=== PATIENT | female | born 1945 | race Caucasian/White ===

== ENCOUNTER 2016-06-11 15:21 | Outpatient (CLI) | payer MEDICARE, OTHER | END 2016-06-11 15:22 | disposition home or self-care (01) | DX: I26.99 Other pulmonary embolism without acute cor pulmonale (principal); Z79.01 Long term (current) use of anticoagulants ==

== ENCOUNTER 2016-07-01 12:19 | Emergency (ER) | payer MEDICARE, OTHER ==
[2016-07-01] MEDS ORDERED: ONDANSETRON ODT 4 MG TABLET TL STA (13:32)
[2016-07-01] MEDS ORDERED: HYDROmorphone 1 MG/ML SYRINGE IM STA (13:32)
[2016-07-01] MEDS ORDERED: KETOROLAC 60 MG/2 ML VIAL IM STA (13:32)
[2016-07-01] MEDS ORDERED: ONDANSETRON ODT 4 MG TABLET ONE (13:51)
[2016-07-01] MEDS ORDERED: KETOROLAC 60 MG/2 ML VIAL ONE (13:51)
[2016-07-01] MEDS ORDERED: HYDROmorphone 1 MG/ML SYRINGE ONE (13:51)
== END 2016-07-01 15:02 | disposition home or self-care (01) ==
DX: M54.31 Sciatica, right side (principal); G89.29 Other chronic pain; Z86.718 Personal history of other venous thrombosis and embolism; Z79.01 Long term (current) use of anticoagulants; I10 Essential (primary) hypertension
CPT/HCPCS: 85610; 96372; 99283; 99284; J1170; Q0162

== ENCOUNTER 2016-07-05 | Outpatient (CLI) | payer MEDICARE, OTHER | END 2016-07-05 15:53 | disposition critical access hospital (66) | CPT/HCPCS: A0425; A0429 ==

== ENCOUNTER 2016-07-05 16:09 | Inpatient (IN) | payer MEDICARE, OTHER ==
[2016-07-05] MEDS ORDERED: IPRATROPIUM/ALBUTEROL 3 ML NEB INH STA (16:15)
[2016-07-05] MEDS ORDERED: DEXAMETHASONE 10 MG/ML VIAL IVP STA (16:15)
[2016-07-05] MEDS ORDERED: HYDROmorphone 1 MG/ML SYRINGE IVP STA (16:15)
[2016-07-05] MEDS ORDERED: IPRATROPIUM/ALBUTEROL 3 ML NEB INH ONE (16:17)
[2016-07-05] MEDS ORDERED: HYDROmorphone 1 MG/ML SYRINGE ONE (16:35)
[2016-07-05] MEDS ORDERED: DEXAMETHASONE 10 MG/ML VIAL ONE (16:36)
[2016-07-05] MEDS ORDERED: IOPAMIDOL-300 100 ML VIAL IVP ONE (17:42)
[2016-07-05] MEDS ORDERED: cefTRIAXone 1 GM in SODIUM CHLORIDE 0.9% MINIBAG 100 ML IV STA (19:30)
[2016-07-05] MEDS ORDERED: ALBUTEROL NEB 2.5 MG/3 ML INH STA (19:31)
[2016-07-05] MEDS ORDERED: cefTRIAXone 1 GM VIAL ONE (19:43)
[2016-07-05] MEDS ORDERED: ALBUTEROL NEB 2.5 MG/3 ML INH ONE (19:54)
[2016-07-05] MEDS ORDERED: ONDANSETRON ODT 4 MG TABLET TL PRN (20:45)
[2016-07-05] MEDS ORDERED: ACETAMINOPHEN 325 MG TABLET PO PRN (20:45)
[2016-07-05] MEDS ORDERED: ONDANSETRON 4 MG/2 ML VIAL IVP PRN (20:45)
[2016-07-05] MEDS ORDERED: ALBUTEROL NEB 2.5 MG/3 ML INH PRN (20:48)
[2016-07-05] MEDS: methylPREDNISolone SUCCINATE 40 MG/ML VIAL IVP SCH (22:11)
[2016-07-05] MEDS: GABAPENTIN 300 MG CAPSULE PO SCH (22:11)
[2016-07-05] MEDS: azaTHIOprine 50 MG TABLET PO SCH (22:11)
[2016-07-05] MEDS: SODIUM CHLORIDE FLUSH 0.9% 10 ML SYRINGE IVP SCH (22:11)
[2016-07-05] MEDS: HYDROmorphone 1 MG/ML SYRINGE IVP PRN (23:41)
[2016-07-06] MEDS: GABAPENTIN 300 MG CAPSULE PO SCH ×3 (07:07→21:15)
[2016-07-06] MEDS: PANTOPRAZOLE 40 MG TABLET PO SCH (07:07)
[2016-07-06] MEDS: SODIUM CHLORIDE FLUSH 0.9% 10 ML SYRINGE IVP SCH ×3 (07:07→21:08)
[2016-07-06] MEDS: methylPREDNISolone SUCCINATE 40 MG/ML VIAL IVP SCH ×3 (07:07→21:14)
[2016-07-06] MEDS ORDERED: cefTRIAXone 500 MG VIAL IVP SCH (09:00)
[2016-07-06] MEDS: HYDROmorphone 1 MG/ML SYRINGE IVP PRN ×5 (09:41→18:32)
[2016-07-06] MEDS: SODIUM CHLORIDE FLUSH 0.9% 10 ML SYRINGE IVP PRN ×4 (09:42→21:16)
[2016-07-06] MEDS: POLYETHYLENE GLYCOL 3350 17 GM PACKET PO SCH (09:43)
[2016-07-06] MEDS: oxyCODONE 5 MG TABLET PO PRN ×3 (09:45→18:31)
[2016-07-06] MEDS: azaTHIOprine 50 MG TABLET PO SCH ×2 (09:45→21:15)
[2016-07-06] MEDS: ENALAPRIL 5 MG TABLET PO SCH (09:45)
[2016-07-06] MEDS: AMITRIPTYLINE 10 MG TABLET PO SCH (09:45)
[2016-07-06] MEDS: CETIRIZINE 10 MG TABLET PO SCH (09:45)
[2016-07-06] MEDS: ACETYLCYSTEINE 600 MG CAPSULE PO SCH (09:52)
[2016-07-06] MEDS ORDERED: NYSTATIN POWDER 15 GM TOP ONE (10:36)
[2016-07-06] MEDS: diazePAM 5 MG TABLET PO PRN (11:50)
[2016-07-06] MEDS: WARFARIN 5 MG TABLET PO SCH (14:01)
[2016-07-06] MEDS: cefTRIAXone 1 GM in SODIUM CHLORIDE 0.9% MINIBAG 100 ML IV SCH (20:31)
[2016-07-06] MEDS: DOCUSATE SODIUM 250 MG CAPSULE PO SCH (23:53)
[2016-07-07] MEDS: PANTOPRAZOLE 40 MG TABLET PO SCH (06:18)
[2016-07-07] MEDS: GABAPENTIN 300 MG CAPSULE PO SCH ×3 (06:18→21:40)
[2016-07-07] MEDS: methylPREDNISolone SUCCINATE 40 MG/ML VIAL IVP SCH ×3 (06:18→21:40)
[2016-07-07] MEDS: SODIUM CHLORIDE FLUSH 0.9% 10 ML SYRINGE IVP SCH ×3 (06:18→21:43)
[2016-07-07] MEDS: oxyCODONE 5 MG TABLET PO PRN ×5 (06:18→21:40)
[2016-07-07] MEDS: diazePAM 5 MG TABLET PO PRN (08:04)
[2016-07-07] MEDS: SODIUM CHLORIDE FLUSH 0.9% 10 ML SYRINGE IVP PRN ×6 (08:05→21:43)
[2016-07-07] MEDS: HYDROmorphone 1 MG/ML SYRINGE IVP PRN ×5 (08:05→16:45)
[2016-07-07] MEDS: POLYETHYLENE GLYCOL 3350 17 GM PACKET PO SCH (10:35)
[2016-07-07] MEDS: DOCUSATE SODIUM 250 MG CAPSULE PO SCH (10:37)
[2016-07-07] MEDS: ACETYLCYSTEINE 600 MG CAPSULE PO SCH (10:38)
[2016-07-07] MEDS: AMITRIPTYLINE 10 MG TABLET PO SCH (10:38)
[2016-07-07] MEDS: ENALAPRIL 5 MG TABLET PO SCH (10:38)
[2016-07-07] MEDS: CETIRIZINE 10 MG TABLET PO SCH (10:38)
[2016-07-07] MEDS: azaTHIOprine 50 MG TABLET PO SCH ×2 (10:38→20:14)
[2016-07-07] MEDS: FLUCONAZOLE 100 MG TABLET PO SCH (10:39)
[2016-07-07] MEDS: diazePAM 5 MG TABLET PO SCH ×2 (14:23→21:40)
[2016-07-07] MEDS: WARFARIN 5 MG TABLET PO SCH (14:23)
[2016-07-07] MEDS: cefTRIAXone 1 GM in SODIUM CHLORIDE 0.9% MINIBAG 100 ML IV SCH (20:13)
[2016-07-08] MEDS: oxyCODONE 5 MG TABLET PO PRN ×2 (03:05→10:37)
[2016-07-08] MEDS: diazePAM 5 MG TABLET PO SCH (05:31)
[2016-07-08] MEDS: GABAPENTIN 300 MG CAPSULE PO SCH (05:31)
[2016-07-08] MEDS: methylPREDNISolone SUCCINATE 40 MG/ML VIAL IVP SCH (05:31)
[2016-07-08] MEDS: SODIUM CHLORIDE FLUSH 0.9% 10 ML SYRINGE IVP SCH (05:31)
[2016-07-08] MEDS: PANTOPRAZOLE 40 MG TABLET PO SCH (06:22)
[2016-07-08] MEDS: HYDROmorphone 1 MG/ML SYRINGE IVP PRN ×3 (07:46→13:01)
[2016-07-08] MEDS: POLYETHYLENE GLYCOL 3350 17 GM PACKET PO SCH (08:54)
[2016-07-08] MEDS: ENALAPRIL 5 MG TABLET PO SCH (08:56)
[2016-07-08] MEDS: azaTHIOprine 50 MG TABLET PO SCH (08:56)
[2016-07-08] MEDS: DOCUSATE SODIUM 250 MG CAPSULE PO SCH (08:57)
[2016-07-08] MEDS: AMITRIPTYLINE 10 MG TABLET PO SCH (08:57)
[2016-07-08] MEDS: FLUCONAZOLE 100 MG TABLET PO SCH (08:57)
[2016-07-08] MEDS: CETIRIZINE 10 MG TABLET PO SCH (08:57)
[2016-07-08] MEDS: ACETYLCYSTEINE 600 MG CAPSULE PO SCH (12:43)
== END 2016-07-08 13:39 | DRG 189 ==
DX: J96.21 Acute and chronic respiratory failure with hypoxia (principal); R09.02 Hypoxemia; J84.9 Interstitial pulmonary disease, unspecified; E87.1 Hypo-osmolality and hyponatremia; Z68.42 Body mass index [BMI] 45.0-49.9, adult; G47.30 Sleep apnea, unspecified; G43.909 Migraine, unspecified, not intractable, without status migrainosus; R35.1 Nocturia; B37.49 Other urogenital candidiasis; H54.7 Unspecified visual loss; J32.9 Chronic sinusitis, unspecified; B37.89 Other sites of candidiasis; G89.29 Other chronic pain; M48.06 Spinal stenosis, lumbar region; I28.9 Disease of pulmonary vessels, unspecified; E66.01 Morbid (severe) obesity due to excess calories; Z86.718 Personal history of other venous thrombosis and embolism; I10 Essential (primary) hypertension; Z99.81 Dependence on supplemental oxygen; R32 Unspecified urinary incontinence; R35.0 Frequency of micturition; I49.9 Cardiac arrhythmia, unspecified; M25.512 Pain in left shoulder; M25.511 Pain in right shoulder; F32.9 Major depressive disorder, single episode, unspecified; Z96.659 Presence of unspecified artificial knee joint; Z79.01 Long term (current) use of anticoagulants; Z79.891 Long term (current) use of opiate analgesic; Z79.52 Long term (current) use of systemic steroids; Z79.899 Other long term (current) drug therapy; Z86.711 Personal history of pulmonary embolism; Z74.9 Problem related to care provider dependency, unspecified

== ENCOUNTER 2016-07-08 | Outpatient (CLI) | payer MEDICARE, OTHER | END 2016-07-08 13:42 | CPT/HCPCS: A0425; A0428 ==

== ENCOUNTER 2016-08-22 13:48 | Outpatient (CLI) | payer MEDICARE, OTHER | END 2016-08-22 13:49 | disposition home or self-care (01) | DX: I26.99 Other pulmonary embolism without acute cor pulmonale (principal); Z79.01 Long term (current) use of anticoagulants ==

== ENCOUNTER 2016-08-28 14:55 | Outpatient (CLI) | payer MEDICARE, OTHER | END 2016-08-28 14:56 | DX: I26.99 Other pulmonary embolism without acute cor pulmonale (principal); Z79.01 Long term (current) use of anticoagulants ==

== ENCOUNTER 2016-10-30 14:45 | Outpatient (CLI) | payer MEDICARE, OTHER | END 2016-10-30 14:46 | LOC: LAB.N 14:45 | PROVIDERS: ATTEND Internal Medicine | DX: I26.99 Other pulmonary embolism without acute cor pulmonale (principal) | CPT/HCPCS: 85610 ==

== ENCOUNTER 2016-12-03 13:18 | Outpatient (CLI) | payer MEDICARE, OTHER | END 2016-12-03 23:59 | disposition home or self-care (01) | DX: I26.99 Other pulmonary embolism without acute cor pulmonale (principal) ==

== ENCOUNTER 2016-12-17 08:00 | Outpatient (CLI) | payer MEDICARE, OTHER ==
[2016-12-17 19:41] LABS: BILIRUBIN,URINE NEGATIVE (NEGATIVE); PH,URINE 6.5 PH (5.0-7.5)
[2016-12-17 19:50] LABS: UA CHARGE (STRIP ONLY) YES; UR CULTURE IF IND NOT INDICATED
== END 2016-12-17 08:01 | disposition home or self-care (01) ==
LOC: LAB.N 08:00
PROVIDERS: ATTEND Internal Medicine
DX: R30.0 Dysuria (principal); I26.99 Other pulmonary embolism without acute cor pulmonale; Z79.01 Long term (current) use of anticoagulants
CPT/HCPCS: 81001; 81003; 85610; 87086

== ENCOUNTER 2017-01-16 13:55 | Outpatient (CLI) | payer MEDICARE, OTHER | END 2017-01-16 13:56 | disposition home or self-care (01) | LOC: LAB.N 13:55 | PROVIDERS: ATTEND Internal Medicine | DX: I26.99 Other pulmonary embolism without acute cor pulmonale (principal) | CPT/HCPCS: 85610 ==

== ENCOUNTER 2017-02-18 12:53 | Outpatient (CLI) | payer MEDICARE, OTHER | END 2017-02-18 12:54 | disposition home or self-care (01) | LOC: LAB 12:53 | PROVIDERS: ATTEND Internal Medicine | DX: I26.99 Other pulmonary embolism without acute cor pulmonale (principal); Z79.01 Long term (current) use of anticoagulants | CPT/HCPCS: 85610 ==

== ENCOUNTER 2017-03-13 14:57 | Outpatient (CLI) | payer MEDICARE, OTHER | END 2017-03-13 14:58 | disposition home or self-care (01) | LOC: LAB 14:57 | PROVIDERS: ATTEND Internal Medicine | DX: I26.99 Other pulmonary embolism without acute cor pulmonale (principal); Z79.01 Long term (current) use of anticoagulants | CPT/HCPCS: 85610 ==

== ENCOUNTER 2017-07-22 08:00 | Outpatient (CLI) | payer MEDICARE, OTHER | END 2017-07-22 08:01 | LOC: LAB.N 08:00 | PROVIDERS: ATTEND Internal Medicine | DX: I26.99 Other pulmonary embolism without acute cor pulmonale (principal); Z79.01 Long term (current) use of anticoagulants | CPT/HCPCS: 85610 ==

== ENCOUNTER 2017-09-17 13:50 | Outpatient (CLI) | payer MEDICARE, OTHER ==
[2017-09-17 15:29] LABS: BASOPHILS # (AUTO) 0.1 10^3/uL (0.0-0.1); BASOPHILS % (AUTO) 0.5 %; HGB - HEMOGLOBIN 13.1 g/dL (12.0-16.0); LYMPHOCYTES # (AUTO) 0.2 10^3/uL (1.5-3.5); LYMPHOCYTES % (AUTO) 2.2 %; MEAN CORPUSCULAR HEMOGLOBIN 32.3 pg (27.0-31.0); MEAN CORPUSCULAR VOLUME 97.9 fL (81.0-99.0); MEAN PLATELET VOLUME 8.2 fL (7.9-10.8); MONOCYTES # (AUTO) 0.5 10^3/uL (0.0-1.0); MONOCYTES % (AUTO) 4.3 %; NEUTROPHILS # (AUTO) 9.9 10^3/uL (1.5-6.6); PLT - PLATELET COUNT 197 10^3/uL (130-450); RED BLOOD COUNT 4.07 10^6/uL (4.20-5.40); RED CELL DISTRIBUTION WIDTH 15.9 % (12.0-15.0); WHITE BLOOD COUNT 10.7 x10^3/uL (4.8-10.8)
[2017-09-17 15:43] LABS: ALBUMIN/GLOBULIN RATIO 1.3 (1.0-2.2); BILIRUBIN,TOTAL 0.6 mg/dL (0.2-1.0); CREATININE 0.9 mg/dL (0.4-1.0); TOTAL PROTEIN 7.2 g/dL (6.7-8.2)
== END 2017-09-17 13:51 | disposition home or self-care (01) ==
LOC: LAB 13:50
PROVIDERS: ATTEND Internal Medicine
DX: I26.99 Other pulmonary embolism without acute cor pulmonale (principal); Z79.01 Long term (current) use of anticoagulants; E04.9 Nontoxic goiter, unspecified; F32.9 Major depressive disorder, single episode, unspecified; I10 Essential (primary) hypertension; I27.20 Pulmonary hypertension, unspecified
CPT/HCPCS: 36415; 80053; 84443; 85025; 85610

== ENCOUNTER 2017-11-04 13:53 | Outpatient (CLI) | payer MEDICARE, OTHER | END 2017-11-04 13:54 | LOC: LAB.N 13:53 | PROVIDERS: ATTEND Internal Medicine | DX: I26.99 Other pulmonary embolism without acute cor pulmonale (principal); Z79.01 Long term (current) use of anticoagulants | CPT/HCPCS: 85610 ==

== ENCOUNTER 2017-11-19 15:20 | Outpatient (CLI) | payer MEDICARE, OTHER | END 2017-11-19 15:21 | disposition home or self-care (01) | LOC: LAB 15:20 | PROVIDERS: ATTEND Internal Medicine | DX: I26.99 Other pulmonary embolism without acute cor pulmonale (principal); Z79.01 Long term (current) use of anticoagulants | CPT/HCPCS: 85610 ==

== ENCOUNTER 2018-01-06 11:15 | Outpatient (CLI) | payer MEDICARE, OTHER ==
--- NOTE | 2018-01-06 16:09 | CONSULTATION NOTE ---
Palliative Care Consultation - Referral Referring Provider: Dr. Danilo Quiles Time of Visit: [id number] Referral setting: Home (This attacks and considerable effort for the patient to leave the home secondary to her dyspnea and chair bound status) Referral Reason: Interstitial Lung Disease/Generalized Weakness - Information Sources Records reviewed: Previous records reviewed History/Review of Systems obtained from: Patient, Friend (Friend Dana Castillo present for the visit; provides often "rescue" visits when patient in distress) Exam limitations: Clinical condition (patient very breathless through all of exam) - History of Present Illness Brief History of Present Illness: This is a 72-year-old woman who presents with severe dyspnea, she has known nonspecific idiopathic pulmonary fibrosis. She was diagnosed about 16 years ago , did fairly well for several years, was functional, able to work, and breathlessness intermittently was only symptom. Reports she did have progression with ongoing limitation for several years, but ended up with an exacerbation as far as hospitalization due to sciatic nerve pain, acute on chronic respiratory failure with hypoxia, and transitioned to [facility] 06/2016. On discharge, because of increasing difficulties of managing at home with her obesity, and activity intolerance was at [facility]. She ended up there only for a short time, before she wanted to return home. She has continued to struggle over the last few months, but most acutely over the last 2-3 months. This is punctuated by severe dyspnea, hypoxia with any kind of minimal movement despite increasing oxygen. She had a severe scare with a recent power outage, her lift chair got stuck, and the concentrator turned off and couldn't get to her supplemental oxygen and had to call for help. With her decline, she had called Dr. Wilson and had to cancel appointment, and with her needing more help the office nurse had told her she "needed hospice" thus the call to Dr. Quiles. Patient has little understanding of hospice, and after discussion is not aligned currently with her current goals. She is currently unable to get out of her home, her son got her a powerchair so she is able to get around the house. Even with removing shirt for exam gets hypoxic down to to low 80s, when talking it stays around 84-85%, takes around 3- 5 minutes of patients being quiet and still for oxygen to normalize up to around 94-95%. She reports at times it floats down into the "40s" with significant episodes, but in 60-70"s at 5 liters with activity, and she paces herself or turns up her oxygen to recover. She does wear an oximeter to help her manage. Medical/Surgical History - Past Medical History Cardiovascular: reports: Hypertension, Pulmonary embolism Respiratory: reports: Shortness of breath, Other (Nonspecific pulmonary fibrosis ) Neuro: Migraines (Hx), Tremors Endocrine/Autoimmune: reports: None GI: reports: GERD : reports: Incontinence, Frequency Psych: reports: Depression, Anxiety Musculoskeletal: reports: Osteoarthritis, Chronic back pain Derm: reports: Other (candidiasis in skin folds) MRSA Hx?: No - Past Surgical History General: reports: Cholecystectomy, Colonoscopy, EGD Ortho: reports: Knee replacement, Carpal Tunnel surgery, Spine surgery, 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 Her son just got , and is moving to [facility] for 3 years. She and her daughter are somewhat estranged. She has minimal support and significant financial stressors as far as being able to hire help. She does live in a one-story home, does have some housekeeping and yard assist. The home is owned by her son. Family History - Family History Family History: Mother: (father in 60's of ID; mother in 60' s of stomach cancer; brother of complications of agent orange), Cancer ( thyroid cancer), Father: , ID, Sister: Alive and Well, Cancer, Brother: Medications/Allergies - Medications Home Medications: Ambulatory Orders Medication Instructions Recorded Confirmed Acetylcysteine 600 mg PO DAILY 11/08/13 01/06/18 [B-Okhhya-h-Cysteine] Prednisone 10 mg PO DAILY 11/08/13 01/06/18 azaTHIOprine [Azathioprine] 50 mg PO QDBREAKFAST 11/08/13 01/06/18 Amitriptyline [Elavil] 20 mg PO QPM 06/15/14 01/06/18 Warfarin [Coumadin] 5 - 10 mg PO DAILY 06/15/14 01/06/18 Citalopram Hydrobromide [Celexa] 10 mg PO DAILY 07/06/16 01/06/18 buPROPion [Wellbutrin Sr] 150 mg PO BID 07/06/16 01/06/18 Biotin 5,000 mg PO DAILY 01/06/18 01/06/18 Flaxseed Oil 1 cap PO DAILY 01/06/18 01/06/18 Nystatin [Nystop] 1 applic TOP BID PRN MDD rash 01/06/18 01/06/18 Tumeric 1 tab PO DAILY 01/06/18 azaTHIOprine [Azathioprine] 100 mg PO QPM 01/06/18 01/06/18 - Allergies Allergies/Adverse Reactions: Allergies Allergy/AdvReac Type Severity Reaction Status Date / Time amoxicillin Allergy Intermediate Rash Verified 07/05/16 16:25 clavulanic acid Allergy Unknown Verified 07/06/16 15:13 Penicillins Allergy Unknown Verified 07/06/16 15:13 Review of Systems - Constitutional Constitutional: reports: Fatigue, Weight stable (309). denies: Fever, Chills - Eyes Eyes: reports: Vision loss, Corrective lenses - Ears, Nose & Throat Ears, Nose & Throat: reports: Postnasal drainage (frequent non responsive to sprays), Dry mouth - Cardiovascular Cardiovascular: reports: Exertional dyspnea, Decr. exercise tolerance, Orthopnea (sleeps in "sleep number" bed with HOB up). 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 denies: Constipation, Nausea, Reflux/heartburn - Genitourinary Genitourinary: reports: Frequency, Incontinence - Musculoskeletal Musculoskeletal: reports: Muscle pain, Back pain, Muscle aches, Stiffness, Limited range of motion, Muscle weakness, Joint pain, Transfer issues (uses walker to transfer to power chair; ambulates few steps only), Other (zfoot pattern with callouses;) - Integumentary Integumentary: reports: Rash (candidiasis in "fat folds") - Neurological Neurological: reports: General weakness, Memory problems (intermittent- connected to hypoxia/anxiety) - Psychiatric Psychiatric: reports: Depression, Anxiety - Hematologic/Lymphatic Hematologic/Lymphatic: reports: Blood clots, Bleeding tendencies (no protime check; getting machine in home) - All Other Systems All Other Systems: reports: Reviewed and negative Physical Exam - Vital Signs Temperature: 97.0 C Pulse Rate: 87 Respiratory Rate: 24 O2 Saturation: 90 (3 liters at rest see HPI) Blood Pressure: 142/62 (currently off enalapril) - Physical Exam General Appearance: positive: Moderate distress (very breathless with any activity or conversation), Anxious Eyes Bilateral: positive: Normal inspection ENT: positive: No signs of dehydration Neck: positive: No JVD, Trachea midline Cardiovascular: positive: Regular rate & rhythm Respiratory: positive: Diminished throughout, Other (dry crackles left lower lobe; few exp. wheezes) Abdomen: positive: Non-tender, Soft, Nml bowel sounds, Obese Skin: positive: Pallor, Dryness Extremities: positive: No pedal edema Neurologic/Psychiatric: positive: Oriented x3, Mood/affect nml, Weakness Palliative Care - POLST Patient has POLST: No Pain: Location (chronic low back pain; intermittent "sciatica" bilateral knee pain;) Tiredness/Fatigue: Moderate (4-6) Drowsiness/Sedation: Mild (1-3) Nausea: None Depression: Mild (1-3) Anxiety: Moderate (4-6) Dyspnea: Severe (7-10) Anorexia: Mild (1-3) Sleep: Variable sleep pattern Constipation: No, Intermittent constipation Feelings of wellbeing/Perceived Quality of Life: Fair, Worsening Performance Status: Patient's report she spends most of her time in a recliner, she can transfer to the power wheelchair and toilet. But she is often incontinent as it is a significant effort for her. She does do some meal prep but paces herself. She cannot longer get down the steps, they are looking into getting her a ramp, she is a second scooter that she uses for paratransit. It is unclear now she will be able to do this without someone accompanying her. She reports she can shower , she does have a transfer bath bench, it is a with great effort. She can do minimal household tasks, and is interviewing for assistance as this has become more difficult. She cannot stand to do the dishes anymore. I would put her at a PPS 50% - Palliative Care Discussion: Patient does not have a durable power of health energy attorney, though she does report she would pick her son. Did point out though he is moving to [place] for 3 years, she does not feel her daughter would be appropriate, her friend suggested including possibly her granddaughter who is 22 years old. Patient has really not done much discussion or thinking about her end-of-life wishes. She has somewhat unrealistic expectations when speaking about the decision around [employer], I did introduce the concept given the seriousness of her illness, her severe lung disease, that her wish to "give it a good try" might be unrealistic as far as expected outcomes. Much time spent on counseling around the [address] form, goals of care, and realistic expectations regarding care for end-of-life. Patient at this point in time does not have adequate support to have oversight for end-of-life event, but definitely would benefit from hospice in assisting with current support and helping develop a transition plan. Patient's goals currently though, do not align with hospice, the patient most likely would meet the hospice criteria. She is not ready to consider focusing on comfort only, no further hospitalizations, and creating an end of life plan. Counseling provided for first steps, her son is coming this weekend, provided information and forms for advance directives, and anticipatory guidance as far as what to expect as she further decline encouraged to discuss the information we have reviewed today, may need to set a family conference in near future. Patient's friend who participated is a retired RN and offered to help Ching with this conversation given her concerns and more limited availability, patient depends a lot on Pat. Impression and Recommendations - Palliative Care Impression: This is a pleasant 72-year-old woman who is morbidly obese, with long-standing history of nonspecific pulmonary fibrosis and history of pulmonary emboli in the past. She has had continued functional decline, is much more vulnerable given her poor activity tolerance and high hypoxia with activity, she is breathless with any activity, but denies distress with this. She has minimal social support, financial limitations as far as being able to hire assistance or return to assisted living, and somewhat unrealistic expectations as far as how she is going to manage her pending decline. Palliative care to provide support and anticipatory guidance, assist with advanced care planning and transition to hospice when goals align. Recommendations/Counseling Done: 1. Dyspnea. Patient at this point is not a candidate for short acting morphine , though most likely would benefit but has no safety net for monitoring response. Counseling provided regarding pacing activity, energy conservation, provided information and obtaining Lifeline. 2. Fatigue, this is multifactorial in origin. Most likely directly related to her dyspnea and hypoxia, morbidity and limited endurance, and deconditioning. Patient would benefit from increased assistance in the home, counseling provided regarding community resources, she has been in contact with Senior services. Will refer medical palliative care director social service to further assist in long-term planning. 3. Anxiety. Patient does have insight into her declining status, but unrealistic expectations as far as her needs into the future. Very anxious she is "going to choke to ", and given the fragility of her situation is at risk for falls, sequela of hypoxic episodes, and hospitalization. Did recommend she request for her Lifeline when that signals if she has a fall and does not require pushing the button. 4. Anti-coag therapy. Patient is obtaining a ongoing pro time machine, secondary to her homebound status. Unfortunately I did not know she needed a blood draw so did not draw a day. Patient expecting it within the next few days , arrange for visit next Friday can draw at that time if not completed. 5. Advanced care planning. Significant amount of time was spent on counseling regarding durable power of health energy attorney, [address] form, goals of care and realistic expectations in the context of serious disease, introduced strategies for talking to her family, counseling regarding the role of hospice. Patient would make the criteria at this point in time, but does not meet align with goals of care for focus on comfort. She has not really thought out her wishes around end of life, and will be significantly challenged given her lack of social support. We will refer to the palliative care team members including medical palliative care director social service, and buyer planner support. She has found her adonay and adonay community which she no longer is able to participate in, very comforting. Thank you Dr. Quiles for asking the palliative care consult service to be involved in the care of your patient, will continue to work with her around advanced care planning and anticipatory guidance. Patient at this point in time most likely would meet hospice criteria but is not ready to make that transition. Will follow up with her next week. Time Spent: 75 minutes with good 50% of this done in counseling regarding her disease process, advanced care planning, and anticipatory guidance as well as safety measures
== END 2018-01-06 11:16 | disposition home or self-care (01) ==
LOC: PC 11:15
PROVIDERS: ATTEND Nurse Practitioner Adult Health
DX: Z51.5 Encounter for palliative care (principal); R06.00 Dyspnea, unspecified; R53.83 Other fatigue; F41.9 Anxiety disorder, unspecified; J84.112 Idiopathic pulmonary fibrosis; E66.01 Morbid (severe) obesity due to excess calories; R09.02 Hypoxemia; Z99.81 Dependence on supplemental oxygen; Z79.01 Long term (current) use of anticoagulants; Z79.52 Long term (current) use of systemic steroids; M79.1 Myalgia; M62.81 Muscle weakness (generalized); G89.29 Other chronic pain; M54.5 Low back pain
CPT/HCPCS: 99345

== ENCOUNTER 2018-01-14 14:30 | Outpatient (CLI) | payer MEDICARE, OTHER ==
--- NOTE | 2018-01-14 17:46 | CONSULTATION NOTE ---
Palliative Care Follow Up - Referral Referring Provider: Dr. Danilo Quiles Time of Visit: [id number] Referral setting: Home (It is a taxing considerable effort for the patient leave the home secondary to dyspnea and weakness) Referral Reason: Pulmonary Fibrosis/Goals of care - Information Sources Records reviewed: Previous records reviewed History/Review of Systems obtained from: Patient Exam limitations: No limitations - History of Present Illness Update Brief HPI Update: This is a 72-year-old woman who presents with nonspecific idiopathic pulmonary fibrosis, she is diagnosed about 16 years ago, has done fairly well for several years, has been dissipating pulmonary rehab has been functional, able to work, and her symptoms of breathlessness have been intermittent. She did have a recent hospitalization 06/2016 due to sciatic nerve pain, with resulting acute on chronic respiratory failure with hypoxia and has continued to decline since this point in time. She is continuing to struggle specifically over the last few months, most acutely over the last 2-3 months, this is with increased oxygen need with severe hyper hypoxia, dyspnea, and with any minimal movement is needing increased oxygen support. At baseline she runs in the 90s at 3 L this is without any movement, with transfers are toileting she needs supplemental oxygen to bring her up to 5 L. She accomplishes this by taking the concentrator at 3 L and putting her tank on with a double nasal cannula to equal 5-6 L. She has been struggling now with her decreased functional status, does recognize the seriousness of her illness, and palliative care has been trying to provide counseling and clarification of goals. Social History - Living Situation Living arrangement: At home Living Situation: Alone Support System: Patient is quite compromised, does have some friends and family that do some errands for her, but she is without any consistent support. She is attempting to hire privately assistance 3 times a week, this is not been finished. Her son is supposed to be making arrangements for [employer]. Medications/Allergies - Medications Home Medications: Ambulatory Orders Medication Instructions Recorded Confirmed Acetylcysteine 600 mg PO DAILY 11/08/13 01/06/18 [V-Ooqwhj-o-Cysteine] Prednisone 10 mg PO DAILY 11/08/13 01/06/18 azaTHIOprine [Azathioprine] 50 mg PO QDBREAKFAST 11/08/13 01/06/18 Amitriptyline [Elavil] 20 mg PO QPM 06/15/14 01/06/18 Warfarin [Coumadin] 5 - 10 mg PO DAILY 06/15/14 01/06/18 Citalopram Hydrobromide [Celexa] 10 mg PO DAILY 07/06/16 01/06/18 buPROPion [Wellbutrin Sr] 150 mg PO BID 07/06/16 01/06/18 Biotin 5,000 mg PO DAILY 01/06/18 01/06/18 Flaxseed Oil 1 cap PO DAILY 01/06/18 01/06/18 Nystatin [Nystop] 1 applic TOP BID PRN MDD rash 01/06/18 01/06/18 Tumeric 1 tab PO DAILY 01/06/18 azaTHIOprine [Azathioprine] 100 mg PO QPM 01/06/18 01/06/18 - Allergies Allergies/Adverse Reactions: Allergies Allergy/AdvReac Type Severity Reaction Status Date / Time amoxicillin Allergy Intermediate Rash Verified 07/05/16 16:25 clavulanic acid Allergy Unknown Verified 07/06/16 15:13 Penicillins Allergy Unknown Verified 07/06/16 15:13 Review of Systems - Constitutional Constitutional: reports: Fatigue. denies: Fever, Chills - Eyes Eyes: reports: Vision loss, Corrective lenses - Ears, Nose & Throat Ears, Nose & Throat: reports: Sore throat (with smoke), Hoarseness, Dry mouth - Cardiovascular Cardiovascular: reports: Exertional dyspnea, Decr. exercise tolerance, Orthopnea - Respiratory Respiratory: reports: Orthopnea, SOB at rest, SOB with exertion - Gastrointestinal Gastrointestinal: reports: Diarrhea (intermittent), Good appetite - Genitourinary Genitourinary: reports: Incontinence (intermittent/stress) - Musculoskeletal Musculoskeletal: reports: Back pain, Muscle aches, Stiffness, Limited range of motion, Muscle weakness, Joint pain (right shoulder), Transfer issues ( transfers to scooter to chair/commode; min ambulation) - Integumentary Integumentary: reports: Rash (intermittent candidasis) - Neurological Neurological: reports: General weakness, Dizziness (with hypoxia), Memory problems (STM mild) - Psychiatric Psychiatric: reports: Depression, Anxiety - All Other Systems All Other Systems: reports: Reviewed and negative Physical Exam - Vital Signs Temperature: 97.4 C Pulse Rate: 72 Respiratory Rate: 28 O2 Saturation: 92 (5 liters/ usually at rest has it at 3 liters with concentator ) Blood Pressure: 118/72 - Physical Exam General Appearance: positive: Alert, Mild distress (respiratory effort), Anxious ENT: positive: No signs of dehydration Neck: positive: No JVD, Trachea midline Cardiovascular: positive: Regular rate & rhythm Respiratory: positive: Diminished throughout Abdomen: positive: Soft, Nml bowel sounds, Obese Skin: positive: Pallor Extremities: positive: No pedal edema Neurologic/Psychiatric: positive: Oriented x3, Other (very anxious and talkative despite breathlessness) Palliative Care - POLST Patient has POLST: Yes POLST Status: DNR, Selective Treatment (completed today) Pain: Pain unchanged, Location (midback area) Tiredness/Fatigue: Moderate (4-6) Drowsiness/Sedation: Mild (1-3) Nausea: None Depression: Mild (1-3) Anxiety: Moderate (4-6) Dyspnea: Severe (7-10) Anorexia: None Sleep: Variable sleep pattern Constipation: No Feelings of wellbeing/Perceived Quality of Life: Fair, Acceptable, Worsening Performance Status: Patient though limited with her activity tolerance and ability to ambulate more than a few feet, does transfer to and from her scooter. With transfer though she does become more hypoxic and increases her oxygen to 5-6 L. She reports she is able to bathe independently, though with her limited right shoulder she has difficulty washing her hair. She does have a bathroom set up. She does have a pad that does raise up secondary to orthopnea. Is having significant difficulty with household tasks including cooking and washing dishes. Does have someone who comes in does her larger housekeeping, as well as assistance with her laundry - Palliative Care Discussion: Patient and I had met last week initiated the conversation about the SHERRY [address], and the need for DPO A. Discussion regarding palliative care versus hospice care, this was followed up by the medical palliative care social secretary along with the son. Patient does recognize her decline particularly over the last few weeks to few months, she reports she is not "afraid to ", but is quite terrified as far as what a respiratory is going to look like. Patient this point in time would be quite open to moving to assisted living, given her increased care needs, but at this juncture she is unable to financially be able to afford this unfortunately. Her son who would be the financial support for this, is getting ready to leave for [facility], and does not have time to rent out the house and get her transferred. Her perception is her kids do not recognize her decline, and eventual . She is actually much more open today about talking about this. We did go ahead and complete the SHERRY ST, after lengthy conversation regarding all the options and her goals of care, after teased it all out she does not want to have CPR recognizing with the seriousness of her illness it would most likely not be a good outcome, nor would she want to be more dependent. She did pick selected treatments, as she is not feeling like she aligns with comfort measures only, she would accept hospitalization, weighing the benefits of [place]'s treatment options offered, but does not want to be ventilated. Lengthy discussion regarding hospice and the hospice benefit, patient will need a primary caregiver and or placement for her end of life given the most likelihood of high symptom burden, and dependency given her illness. We did discuss at length her DPOAE, she does want her son Mk Zamora [phone] As the primary though he will be moving to [facility] in a couple weeks. She is going to ask her bycsoz-cl-yyg Cheryl Denney about being the second, and consider her daughter the third. She is concerned her daughter would find this too overwhelming. Results - Lab Results Lab results reviewed: Yes Lab and Imaging Results: Patient did receive a pro time machine, she is able to check it now she reports her pro time was 2.2 this week Impression and Recommendations - Palliative Care Impression: This is an anxious 72-year-old woman who is morbidly obese, with long-standing history of nonspecific pulmonary fibrosis, history of pulmonary emboli in the past, with functional decline, poor activity tolerance, severe dyspnea and hypoxia. Patient is beginning to tease out her goals of care, SHERRY ST was completed today, medical palliative care social secretary working with patient and family to establish long-term plan and goals as well. Palliative care team to continue to provide support until patient is ready to transition to hospice, or has an acute event that presses this sooner. Recommendations/Counseling Done: 1. Dyspnea. Patient at this point is not a candidate for short acting morphine , given the fact she lives alone, there is no safety net for monitoring response though most likely would benefit. We did did discuss in the context of her concerns regarding breathlessness, in the future decline and about comfort status, the use of morphine and hospice focused comfort care. Counseling provided regarding pacing activity, energy conservation, encouraged to follow-up on [employer]. 2. Fatigue this is multifactorial in origin. Most likely directly related to her dyspnea and hypoxia, her morbid obesity, limited endurance, and deconditioning. She is starting to make phone calls to be able to hire help, the agreement between her, the family, and medical palliative care social secretary was to look at least starting with 3 times a week. 3. Anxiety. Patient does have some insight into her declining status, is somewhat unrealistic expectation as far as her needs in the future again. We did spend quite a bit of time answering her questions regarding as best we know her expected decline, symptoms she may experience, the role of hospice, and the need for primary caregivers. 4. Advanced care planning. Revisited again with a significant amount of time spent on counseling regarding durable power of health assistant prosecuting attorney, SHERRY ST form, and goals of care. Patient is much more clear she is starting to define what this might look like for her, we did complete the SHERRY ST with a DNAR/selective treatment. Palliative care to continue to provide support, did agree on monthly visits, until ready to transition to hospice. Time Spent: 75 minutes with gated 50% of this done in counseling regarding goals of care, anticipatory guidance regarding disease process, and coordination of care with other team members.
== END 2018-01-14 14:31 | disposition home or self-care (01) ==
LOC: PC 14:30
PROVIDERS: ATTEND Nurse Practitioner Adult Health
DX: Z51.5 Encounter for palliative care (principal); R06.00 Dyspnea, unspecified; R53.83 Other fatigue; F41.9 Anxiety disorder, unspecified; J84.10 Pulmonary fibrosis, unspecified; Z99.81 Dependence on supplemental oxygen; M62.81 Muscle weakness (generalized); E66.01 Morbid (severe) obesity due to excess calories; R09.02 Hypoxemia; Z66 Do not resuscitate
CPT/HCPCS: 99350

== ENCOUNTER 2018-02-24 15:00 | Outpatient (CLI) | payer MEDICARE, OTHER ==
--- NOTE | 2018-02-25 08:34 | CONSULTATION NOTE ---
Palliative Care Follow Up - Referral Referring Provider: Dr. Danilo Marinelli Time of Visit: [id number] Referral setting: Home (It is a taxing and considerable effort for the patient to leave the home secondary to dyspnea/hypoxia) Referral Reason: Pulmonary Fibrosis - Information Sources Records reviewed: Previous records reviewed History/Review of Systems obtained from: Patient Exam limitations: No limitations - History of Present Illness Update Brief HPI Update: This is a 72-year-old woman who presents with nonspecific idiopathic pulmonary fibrosis, diagnosed 16 years ago, and has had a fairly progressive but slow decline. She though has over the last few months, most acutely over the last 2 months, had increased oxygen need, with severe hypoxia, dyspnea, and with minimal activity increased oxygen need. She continues to run at baseline in the 90s at 3 L, with any transfers or activity she needs supplemental oxygen to bring her up to 5 L. Her oxygen does decrease even with conversation, into the mid 80s, she continues to try and remain independent, using power chair, walker for transfers, and pacing of activities. She does at some level have an understanding of the seriousness of her illness, over estimates her ability, and continues to be fiercely independent. She has not left the home for over 6-8 weeks, but she talks about driving, discussed at length she is not to drive. Her dog will he of 13 years, about 2 weeks ago, secondary to seizures. She has had a fairly significant grief reaction to this, and now has minimal companionship. She has neighbors that check on her, [employer], but has done very little to move forward on getting increased support in the home. Social History - Living Situation Living arrangement: At home Living Situation: Alone Support System: Patient with very little social support, son has moved to [facility], daughter minimally involved. She does have a [id number] who she chats with on a regular basis, but is unable to really provide any practical support. She has employed or made contact with a caregiver, but this will only be for Friday and Friday afternoons. She does have support for household cleaning. She reports she does have a granddaughter that can help with transportation. Medications/Allergies - Medications Home Medications: Ambulatory Orders Medication Instructions Recorded Confirmed Acetylcysteine 600 mg PO DAILY 11/08/13 02/25/18 [O-Dxuzal-e-Cysteine] Prednisone 10 mg PO DAILY 11/08/13 02/25/18 azaTHIOprine [Azathioprine] 50 mg PO QDBREAKFAST 11/08/13 02/25/18 Amitriptyline [Elavil] 20 mg PO QPM 06/15/14 02/25/18 Warfarin [Coumadin] 5 - 10 mg PO DAILY 06/15/14 02/25/18 Citalopram Hydrobromide [Celexa] 10 mg PO DAILY 07/06/16 02/25/18 buPROPion [Wellbutrin Sr] 150 mg PO BID 07/06/16 02/25/18 Biotin 5,000 mg PO DAILY 01/06/18 02/25/18 Flaxseed Oil 1 cap PO DAILY 01/06/18 02/25/18 Nystatin [Nystop] 1 applic TOP BID PRN MDD rash 01/06/18 02/25/18 Tumeric 1 tab PO DAILY 01/06/18 02/25/18 azaTHIOprine [Azathioprine] 100 mg PO QPM 01/06/18 02/25/18 - Allergies Allergies/Adverse Reactions: Allergies Allergy/AdvReac Type Severity Reaction Status Date / Time amoxicillin Allergy Intermediate Rash Verified 07/05/16 16:25 clavulanic acid Allergy Unknown Verified 07/06/16 15:13 Penicillins Allergy Unknown Verified 07/06/16 15:13 Review of Systems - Constitutional Constitutional: reports: Fatigue, Weight stable. denies: Fever, Chills - Eyes Eyes: reports: Vision loss - Ears, Nose & Throat Ears, Nose & Throat: reports: Dry mouth - Cardiovascular Cardiovascular: reports: Exertional dyspnea, Decr. exercise tolerance, Orthopnea. denies: Palpitations, Chest pain - Respiratory Respiratory: reports: SOB at rest, SOB with exertion. denies: Cough - Gastrointestinal Gastrointestinal: reports: Good appetite. denies: Constipation, Nausea - Genitourinary Genitourinary: reports: Incontinence - Musculoskeletal Musculoskeletal: reports: Stiffness, Limited range of motion, Muscle weakness, Assistive devices (uses walker to assist with transfers), Transfer issues (uses powerchair for mobility in home) - Integumentary Integumentary: reports: Rash (candidiasis in folds), Dryness - Neurological Neurological: reports: General weakness, Headache (right sided tension/hx of migraines), Memory problems (STM) - Psychiatric Psychiatric: reports: Anxiety - Hematologic/Lymphatic Hematologic/Lymphatic: reports: Blood clots (hx of PE) - All Other Systems All Other Systems: reports: Reviewed and negative Physical Exam - Vital Signs Temperature: 97.9 C Pulse Rate: 88 Respiratory Rate: 22 O2 Saturation: 92 (5 liters at rest; 82 with talking for prolonged period) Blood Pressure: 178/86 (end of visit after talking with hypoxia) - Physical Exam General Appearance: positive: Mild distress, Anxious Eyes Bilateral: positive: Normal inspection ENT: positive: No signs of dehydration Neck: positive: No JVD, Trachea midline Cardiovascular: positive: Regular rate & rhythm Respiratory: positive: Other (inspiratory dry crackles bilaterally, diminished BS LLL; increased respiratory effort with conversation;) Abdomen: positive: Soft, Nml bowel sounds, Obese Skin: positive: Pallor, Dryness, Rash Extremities: positive: No pedal edema, Other (left foot bandaged had "rammed" toe into fridge with power chair) Neurologic/Psychiatric: positive: Oriented x3, Mood/affect nml Palliative Care - POLST Patient has POLST: Yes POLST Status: DNR, Selective Treatment Pain: Location (new pain back of right hand; radiates into forearm;) Tiredness/Fatigue: Moderate (4-6) Drowsiness/Sedation: Mild (1-3) Nausea: None Depression: Mild (1-3) Anxiety: Moderate (4-6) Dyspnea: Severe (7-10) Anorexia: Mild (1-3) Sleep: Variable sleep pattern (patient tends to stay up into the early hours of the morning playing computer games; poor sleep hygiene) Constipation: No Feelings of wellbeing/Perceived Quality of Life: Fair Performance Status: Patient is able to manage her ADLs, would be better to have some assistance. She does pace herself very slowly. She does spend most of the time in a recliner, and is mobile in her home with a power chair only. - Palliative Care Discussion: Patient does have a SHERRY ST in place, it is posted on the refrigerator. It is a do not attempt resuscitation/allow natural as well as selective treatment. She is hopeful as far as goals to remain in her home for as long as possible, she had been hoping for some improvement, but does recognize that she has continued to decline both functionally and with her respiratory status over the last few weeks to months. She is very isolated, now with the loss of her dog with minimal companionship, despite her breathlessness and hypoxia with conversation, patient talks fairly incessantly through the visit. Has made contact and met with medical palliative care elementary school social worker, he will continue to meet with her on a monthly basis. She has had the maintenance supervisor electrical reach out, she is still interested in follow-up. She reports her adonay is significant her coping. Impression and Recommendations - Palliative Care Impression: This is an anxious 72-year-old woman who is morbidly obese, with long-standing history of nonspecific pulmonary fibrosis, history of pulmonary emboli, presents with functional decline, poor activity tolerance, severe dyspnea and hypoxia. She most recently lost her dog, is presenting with a fairly significant grief reaction. Patient continues as far as her goals to remain in the home and independent for as long as possible. Palliative care team to provide support until patient is ready to transition to hospice, or an acute event that may press this sooner. Recommendations/Counseling Done: 1. Dyspnea. Patient at this point remains not a candidate for short acting morphine, given the fact she lives alone and no safety net for monitoring. She has been pacing herself with better control of her hypoxia, have encouraged her to allow a new caregiver to assist with bathing and other activities for energy conservation, patient becomes quite anxious with her oximeter, reviewed that given her poor circulation this is not going to always be accurate. 2. Fatigue, this is multifactorial in origin. Did review her sleep hygiene, she does stay up all night often playing computer games, shopping online, and does not have good sleep habits. Counseling provided sleep hygiene, setting alarm to go to bed, minimizing her exposure to computer screen prior to sleep, and timing of her melatonin. 3. Anxiety. Patient does have some insight into her declining status remains fairly unrealistic about her abilities. Counseled she is not to return to driving, secondary to her hypoxia and poor activity tolerance. Problem solving regarding how she might still be able to get out for doctor's appointments etc. She has obtained ramp, now needs to follow through on getting it set up. 4. Candidiasis in groin folds and under her breast. Patient does have difficulty with nystatin given her morbid obesity and her difficulty tolerating laying flat. Counseling regarding use of interwick product. 5. Anti-coag therapy. Patient is managing her independent coag therapy machine, with little difficulty. She is working with Dr. marinelli's office to titrate coumadin. 6. Advanced care planning. SHERRY ST form has been completed, has not completed her durable power of health civil rights representative, need to identify backup given son is in [place]. Palliative care to continue to provide support, will continue to visit on a monthly basis until ready to transition to hospice. Time Spent: 60 minutes with greater than 50% of this done in counseling symptom management, sleep hygiene, goals of care, addressing grief and loss, and anticipatory guidance
== END 2018-02-24 15:01 | disposition home or self-care (01) ==
LOC: PC 15:00
PROVIDERS: ATTEND Nurse Practitioner Adult Health
DX: Z51.5 Encounter for palliative care (principal); I27.20 Pulmonary hypertension, unspecified; J84.112 Idiopathic pulmonary fibrosis; R53.83 Other fatigue; B37.2 Candidiasis of skin and nail; F41.9 Anxiety disorder, unspecified; R32 Unspecified urinary incontinence; H54.7 Unspecified visual loss; Z99.81 Dependence on supplemental oxygen; Z66 Do not resuscitate; Z79.52 Long term (current) use of systemic steroids; Z79.01 Long term (current) use of anticoagulants
CPT/HCPCS: 99350

== ENCOUNTER 2018-03-26 08:00 | Outpatient (CLI) | payer MEDICARE, OTHER ==
[2018-03-27 11:16] LABS: BILIRUBIN,URINE NEGATIVE (NEGATIVE); GLUCOSE, URINE (UA) NEGATIVE (NEGATIVE); KETONES,URINE (UA) NEGATIVE (NEGATIVE); LEUKOCYTE ESTERASE, URINE SMALL (NEGATIVE); NITRITE,URINE POSITIVE (NEGATIVE); OCCULT BLOOD,URINE MODERATE (NEGATIVE); PROTEIN,URINE TRACE mg/dL (NEGATIVE); UROBILINOGEN,URINE 0.2 (NORMAL) E.U./dL (NORMAL)
[2018-03-27 11:25] LABS: BACTERIA,URINE Moderate /HPF (None Seen); CLARITY,URINE CLOUDY (CLEAR); SQUAMOUS EPITHELIAL CELL,UR FEW Squamous (<= Few); WBC CLUMPS,URINE PRESENT
[2018-03-27 11:26] LABS: CRYSTALS,URINE 0-2 Calcium Oxalate /LPF
== END 2018-03-26 08:01 | disposition home or self-care (01) ==
LOC: LAB.R 08:00
PROVIDERS: ATTEND Internal Medicine
DX: R30.0 Dysuria (principal)
CPT/HCPCS: 81001; 87086; 87181

== ENCOUNTER 2018-06-08 14:10 | Outpatient (CLI) | payer MEDICARE, OTHER ==
--- NOTE | 2018-06-08 17:53 | CONSULTATION NOTE ---
Palliative Care Follow Up - Referral Referring Provider: Dr. Marinelli Time of Visit: [id number] Referral setting: Home Referral Reason: Pulmonary Fibrosis - Information Sources Records reviewed: Previous records reviewed History/Review of Systems obtained from: Patient Exam limitations: No limitations - History of Present Illness Update Brief HPI Update: This is a 73-year-old woman who has advanced stages of pulmonary fibrosis, which is thought to be idiopathic. She has had history of pulmonary embolus, for which she is on ongoing warfarin. She did see her mud analysis supervisor in early April, was found to have a significant reduction in her pulmonary function tests with readings of FVC at 0.8 925% of the predicted. She had made the appointment to define life expectancy, he reports it is indeed "poor", but it was given a couple of years. This was a relief to her, as her understanding was she was fairly eminent. He had recommended she would benefit from a formal evaluation for BiPAP, and is quite focused on her ongoing difficulty with nasal congestion. She has tried her ipratropium bromide spray with very little relief, and was wondering about allergy shots. We discussed this most likely is not going to give her the benefit that she is perceiving, and recommended tried some antihistamine given this is been beneficial in the past. Patient is made very little progress as far as making changes, she does have some increased help with someone coming once a week she is quite isolated and lonely, she does agree to [employer] and volunteer support this time. She continues to practice poor sleep hygiene practices, though we have had long discussions regarding this. She remains quite anxious, does tend to use high doses of her oxygen secondary to her perception she desats easily with any kind of movement or transfers. She does get breathless with even conversation, so I expect mobility and transfers do cause her more distress. Patient's goals are to remain at home and independent as long as possible, palliative care to continue provide support until transition to hospice is appropriate. Social History - Living Situation Living arrangement: At home Living Situation: Alone Support System: She does have a daughter and a son. Her daughter is only peripherally involved in her care. Her son now lives in [place]. She does have her [id number] Cheryl who checks in every few weeks. She manages all her own appointments and medications. She does have granddaughters who will provide transportation, is her granddaughter did take her down to her appointment at [facility] Medications/Allergies - Medications Home Medications: Ambulatory Orders Medication Instructions Recorded Confirmed Acetylcysteine 600 mg PO DAILY 11/08/13 06/08/18 [N-[id number]-[id number]-[id number]] Prednisone 10 mg PO DAILY 11/08/13 06/08/18 azaTHIOprine [Azathioprine] 50 mg PO QDBREAKFAST 11/08/13 06/08/18 Amitriptyline [Elavil] 20 mg PO QPM 06/15/14 06/08/18 Warfarin [Coumadin] 5 - 10 mg PO DAILY 06/15/14 06/08/18 Citalopram Hydrobromide [Celexa] 10 mg PO DAILY 07/06/16 06/08/18 buPROPion [Wellbutrin Sr] 150 mg PO BID 07/06/16 06/08/18 Biotin 5,000 mg PO DAILY 01/06/18 06/08/18 Flaxseed Oil 1 cap PO DAILY 01/06/18 06/08/18 Nystatin [Nystop] 1 applic TOP BID PRN MDD rash 01/06/18 06/08/18 Tumeric 1 tab PO DAILY 01/06/18 06/08/18 azaTHIOprine [Azathioprine] 100 mg PO QPM 01/06/18 06/08/18 Ipratropium [place] 1 inh JESSI BID 06/08/18 06/08/18 Melatonin 5 mg PO DAILY PM PRN 06/08/18 06/08/18 - Allergies Allergies/Adverse Reactions: Allergies Allergy/AdvReac Type Severity Reaction Status Date / Time amoxicillin Allergy Intermediate Rash Verified 07/05/16 16:25 clavulanic acid Allergy Unknown Verified 07/06/16 15:13 Penicillins Allergy Unknown Verified 07/06/16 15:13 Review of Systems - Constitutional Constitutional: reports: Fatigue, Weight loss (patient reports at Dr. Haque's office of 50 pound weight loss; 280 from 322). denies: Fever, Chills - Eyes Eyes: reports: Vision loss, Corrective lenses - Ears, Nose & Throat Ears, Nose & Throat: reports: Nasal congestion (describes as "poofs up" and can't breath), Postnasal drainage, Hoarseness (intermittent), Dry mouth - Cardiovascular Cardiovascular: reports: Lightheadedness, Exertional dyspnea, Decr. exercise tolerance, Orthopnea - Respiratory Respiratory: reports: Orthopnea, SOB at rest, SOB with exertion - Gastrointestinal Gastrointestinal: reports: Constipation, Reflux/heartburn, Good appetite. denies: Nausea - Genitourinary Genitourinary: reports: Frequency, Incontinence (mild) - Musculoskeletal Musculoskeletal: reports: Back pain, Stiffness, Muscle weakness, Transfer issues (pivot transfers to wheelchair/bed/recliner) - Integumentary Integumentary: reports: Rash (improved), Dryness - Neurological Neurological: reports: General weakness, Headache (wakes with severe headache consistently; responds to APAP), Memory problems (mild STM) - Psychiatric Psychiatric: reports: Depression, Anxiety. denies: Suicidal - Hematologic/Lymphatic Hematologic/Lymphatic: denies: Recurrent infections - All Other Systems All Other Systems: reports: Reviewed and negative Physical Exam - Vital Signs Temperature: 97.3 C Pulse Rate: 83 Respiratory Rate: 20 O2 Saturation: 92 (5 liters at rest) Blood Pressure: 138/86 - Physical Exam General Appearance: positive: Mild distress, Anxious Eyes Bilateral: positive: Normal inspection ENT: positive: No signs of dehydration Neck: positive: No JVD, Trachea midline Cardiovascular: positive: Regular rate & rhythm Respiratory: positive: Diminished throughout (fine dry exp crackles) Abdomen: positive: Soft, Nml bowel sounds, Obese Skin: positive: Pallor, Dryness, Bruising. negative: Rash Extremities: positive: No pedal edema Neurologic/Psychiatric: positive: Oriented x3, Mood/affect nml, Weakness, Flat affect, Other (pressured speech/gets breathless easily) Palliative Care - POLST Patient has POLST: Yes POLST Status: DNR, Selective Treatment Pain: Pain unchanged, Location (right shoulder and back; uses APAP; headache pain worsening) Tiredness/Fatigue: Moderate (4-6), Comment (She does go to bed at 3 am; awakens at 12-1300) Drowsiness/Sedation: Mild (1-3) Nausea: None Depression: Moderate (4-6) Anxiety: Severe (7-10) Dyspnea: Severe (7-10) Anorexia: Mild (1-3) Sleep: Variable sleep pattern Constipation: Yes, Intermittent constipation Feelings of wellbeing/Perceived Quality of Life: Fair, Acceptable, No change Performance Status: Patient is limited by her dyspnea and need to work with her oxygen tanks and oxygen concentrator. She does double her oxygen i.e. concentrator and tanks to increase her oxygen to keep her numbers above 90 with transfers and activity. She is still bathing independently about once a week, does have someone doing housekeeping, but does spend most of her time in the recliner. I would put her at a PPS at 50% - Palliative Care Discussion: Patient is feeling somewhat relieved that she has "2 years". We did discuss this is in the context of no further complications, recurrent pneumonia, no falls. She does recognize she has not improved at all, does have some "bad days", these are punctuated by increased headache pain and less tolerance of activity. She does admit to feeling lonely, her dog will he had earlier this year, and has very few visitors. She spends her time watching TV, on the computer, and at night playing computer games. Patient's hope is to be able to stay at home through end of life, but is very anxious about "gasping" and dying of horrible . Counseling provided regarding the role of hospice, symptom management, medications were used to keep people comfortable. Palliative care to continue to provide support, will enlist help of wholesale and retail merchant and volunteer. Impression and Recommendations - Palliative Care Impression: This is a 73-year-old woman who has advanced stage pulmonary fibrosis, who is mostly homebound, and presents with anxiety, depression, and significant breathlessness. She continues to create many barriers as far as easing symptoms, increasing support, and/or problem solving. Palliative care to continue provide support and transition to hospice when appropriate Recommendations/Counseling Done: 1. Fatigue. This is multifactorial in origin. Patient gets significantly dyspneic with any kind of activity, so does present with deconditioning. Patient currently is still able to independently transfer, is independently bathing though is excepting more help as far as household tasks. Encouraged to be as active as possible within her limitations, as the goal is to keep her independent. 2. Insomnia. Patient has been counseled on sleep hygiene, this is revisited again in the context of patient's perceived difficulty with sleeping. She does sleep though 8-10 hours a day. We did discuss moving back her set bedtime and arising time and an hour every week. Also again reiterated screen time, and light exposure. 3. Dyspnea. Patient has her own ideas regarding managing her oxygen. She does double her oxygen as far as using concentrator and tanks. Unclear if this is really necessary, she is going to have Dr. marinelli evaluate for [employer] oxygen. She would like a concentrator that goes up to 8-10 L. As currently this is what she is creating by doubling up. Unfortunately Medicare has changed regulations, nurse practitioner so longer can certify for oxygen equipment. Recommended she call ahead of time so they know her expectations. 4. Depression. Patient is on antidepressants, most likely is a combination of isolation and feelings of grief and loss. Did agree as patient is quite angry at [employer], for wholesale and retail merchant support as well as will trial volunteer for weekly visits for socialization and small tasks. 5. Advanced pulmonary fibrosis. Patient remains quite compromised, at this point in time is had no further "episodes" of concern as far as safety. Patient is hopeful that she will "improve", though when reviewed visit and information from her mud analysis supervisor is in agreement that she will continue to decline. At this point in time she has minimal social support and caregiving support, has presented many barriers as far as addressing this more aggressively. We will go ahead and have medical palliative care social sciences professor follow along as changes occur. 6. Advanced care planning. Addressed patient's questions yet again regarding palliative versus hospice care, reviewed patient needs to have a prognosis of 6 months or less as well as goals for comfort only and not rehospitalization. She does not feel like she is quite there yet for end of life would like to consider a at home. Given her lack of social support though this will be quite challenging. We did discuss earlier transition to hospice is more likely to be able to meet her goals, will continue to monitor for decline Time Spent: 60 minutes with getting 50% of this done in counseling regarding symptoms and symptom management, goals of care, resources, coordination of care with referral to [facility] and volunteer
== END 2018-06-08 14:11 | disposition home or self-care (01) ==
LOC: PC 14:10
PROVIDERS: ATTEND Nurse Practitioner Adult Health
DX: Z51.5 Encounter for palliative care (principal); I27.20 Pulmonary hypertension, unspecified; J84.10 Pulmonary fibrosis, unspecified; R53.83 Other fatigue; G47.00 Insomnia, unspecified; R06.00 Dyspnea, unspecified; F32.9 Major depressive disorder, single episode, unspecified; H54.7 Unspecified visual loss; Z66 Do not resuscitate; Z79.01 Long term (current) use of anticoagulants; Z99.81 Dependence on supplemental oxygen; Z79.52 Long term (current) use of systemic steroids
CPT/HCPCS: 99350

== ENCOUNTER 2018-07-14 17:43 | Outpatient (CLI) | payer MEDICARE, OTHER ==
--- NOTE | 2018-07-14 18:07 | CONSULTATION NOTE ---
Palliative Care Follow Up - Referral Referring Provider: Dr. Danilo Marinelli Time of Visit: [id number] Referral setting: Home (It is a taxing considerable effort for the patient leave the home secondary to severe dyspnea and fatigue) Referral Reason: Pulmonary Fibrosis/Anxiety - Information Sources Records reviewed: Previous records reviewed History/Review of Systems obtained from: Patient Exam limitations: No limitations - History of Present Illness Update Brief HPI Update: This is a 73-year-old woman who has advanced stages of pulmonary fibrosis, which is thought to be idiopathic. She also has a history of pulmonary embolus for which she is on warfarin titrated by her primary care provider. She continues to have severe respiratory compromise, with desaturation with any kind of movement, she does get tachycardic, keeps her oxygen usually around 4-5 L, and up to 10 L when moving. At this point in time she does have a new concentrator, she does report this is better but it does only go up to 9 L but her O2 sats are remaining in an acceptable range for her. She continues to be somewhat unrealistic regarding her current situation, she wanted to revisit the whole thing about driving today. I was very firm in the context patient is not safe to drive, she does have severe hypoxia, and if she were in an accident it would be hard pressed to not find her at fault. She has many excuses and reasons why paratransit is not working, and she has in her mind multiple [place]. Of note she has not set any of these up, this is been a common theme. We did discuss in the context of 1 of the things is causing her most dramatic distress and her quality of life is her headaches. Dr. marinelli did send her a referral, this is in [place] but she again puts at multiple barriers. In the context of her headache she reports is fairly persistent, more frontal. She does not perceive it is connected all to her hypoxia, her blood pressure, or her activity level. She does at times use Tylenol with some results, but is finding this more of problem. Patient expecting to get a new power chair, she does have one that does not work very well, and again provides multiple barriers for getting out as it does not go down the ramp that she had bought, which is too steep. Patient perceives that she is in "a holding pattern". She does feel she recovers quicker with the high flow concentrator, but continues to have difficulty meeting her care needs at home. She has just a minimal amount of help, but again puts it barriers to following through our hiring more assistance. She is only bathing every other week, because of the difficulty she has with this, she is going to talk to her son about "a walk-in shower" this weekend. I find the patient somewhat pale, she remains very dyspneic with any kind of conversation, she is quite tangential in her thinking and is difficulty to focus as far as her goals. She does, with multiple barriers regarding why she cannot follow through on things, and also I perceive her with high anxiety. She is quite isolated, she continues to grieve the loss of her little dog who is her constant team supervisor, and has minimal support from her family. Patient has expiratory dry crackles in her right lower lobe, left diminished. Denies any cough, she does have dry skin, her nails are significantly long and they are in need of trimming. Her house is quite cluttered, she continues to stay up late hours at night, and is continued to online shop with increased accumulating packages at home. Social History - Living Situation Living arrangement: At home Living Situation: Alone Support System: Patient continues to oversee her own care, her son from [facility] who will be coming home for couple days, she was able gathering with her son and daughter. Her daughter does not provide any kind of support. She has had some transportation from her granddaughter. Patient does have [employer], she does have a new lift chair which has made things much more easy, and reports the new concentrator has helped her as well. She has a neighbor who checks on her regularly. Medications/Allergies - Medications Home Medications: Ambulatory Orders Medication Instructions Recorded Confirmed Acetylcysteine 600 mg PO DAILY 11/08/13 07/14/18 [[id number]-Cysteine] Prednisone 10 mg PO DAILY 11/08/13 07/14/18 azaTHIOprine [Azathioprine] 50 mg PO QDBREAKFAST 11/08/13 07/14/18 Amitriptyline [Elavil] 20 mg PO QPM 06/15/14 07/14/18 Warfarin [Coumadin] 5 - 10 mg PO DAILY 06/15/14 07/14/18 Citalopram Hydrobromide [Celexa] 10 mg PO DAILY 07/06/16 07/14/18 buPROPion [Wellbutrin Sr] 150 mg PO BID 07/06/16 07/14/18 Biotin 5,000 mg PO DAILY 01/06/18 07/14/18 Flaxseed Oil 1 cap PO DAILY 01/06/18 07/14/18 Nystatin [Nystop] 1 applic TOP BID PRN MDD rash 01/06/18 07/14/18 Tumeric 1 tab PO DAILY 01/06/18 07/14/18 azaTHIOprine [Azathioprine] 100 mg PO QPM 01/06/18 07/14/18 Ipratropium [place] 1 inh JESSI BID 06/08/18 07/14/18 Melatonin 5 mg PO DAILY PM PRN 06/08/18 07/14/18 Sildenafil Citrate [Sildenafil] 20 mg PO BID 07/14/18 07/14/18 - Allergies Allergies/Adverse Reactions: Allergies Allergy/AdvReac Type Severity Reaction Status Date / Time amoxicillin Allergy Intermediate Rash Verified 07/05/16 16:25 clavulanic acid Allergy Unknown Verified 07/06/16 15:13 Penicillins Allergy Unknown Verified 07/06/16 15:13 Review of Systems - Constitutional Constitutional: reports: Fatigue, Weight stable. denies: Fever, Chills - Eyes Eyes: reports: Vision loss, Corrective lenses - Ears, Nose & Throat Ears, Nose & Throat: reports: Nasal congestion, Dry mouth - Cardiovascular Cardiovascular: reports: Exertional dyspnea, Decr. exercise tolerance, Orthopnea - Respiratory Respiratory: reports: Orthopnea, SOB at rest, SOB with exertion - Gastrointestinal Gastrointestinal: reports: Good appetite. denies: Constipation, Nausea, Reflux/heartburn - Genitourinary Genitourinary: reports: Urgency - Musculoskeletal Musculoskeletal: reports: Muscle aches, Stiffness, Limited range of motion, Muscle weakness, Transfer issues (uses walker to transfer; uses power chair in home-one found and in poor condition; hoping to get new scooter/chair) - Integumentary Integumentary: reports: Dryness, Nail changes (thick overgrown toe nails) - Neurological Neurological: reports: General weakness, Headache (reports have increased in frequency and intensity; uses APAP without much relief; has referral to [place] to specialist-creates many barriers to going; patient does not feel it is related to her oxygen levels/use; worse when first awakens;), Memory problems (She does have short-term memory loss, has difficulty holding onto thoughts. Had negotiated at length for time of visit, and on arrival patient had forgotten I was coming.) - Psychiatric Psychiatric: reports: Depression, Anxiety - All Other Systems All Other Systems: reports: Reviewed and negative Physical Exam - Vital Signs Temperature: 96.8 C Pulse Rate: 86 Respiratory Rate: 16 O2 Saturation: 86 (5 liters with conversation; 93% if rests and recovers) Blood Pressure: 138/68 - Physical Exam General Appearance: positive: Mild distress, Anxious Eyes Bilateral: positive: Normal inspection, Conjunctivae nml (resolved) ENT: positive: Dry mucous membranes (baseline) Neck: positive: No JVD, Trachea midline Cardiovascular: positive: Regular rate & rhythm Respiratory: positive: Diminished throughout, Other (dry expiratory crackles RLL) Abdomen: positive: Soft, Nml bowel sounds, Obese Skin: positive: Pallor, Dryness, Pruritis, Rash, Other (patient unable tolerate bathing except every other week; unwilling to explore other support/set ups; could use MEDIA ANALYTICS MANAGER) Extremities: positive: No pedal edema, Other (hammer toes; thickened toenails badly needing attention) Neurologic/Psychiatric: positive: Oriented x3, Mood/affect nml, Weakness, Flat affect, Other (patient talks almost nonstop; tangential in her thinking and reasoning;) Palliative Care - POLST Patient has POLST: Yes POLST Status: DNR, Selective Treatment Pain: Pain worsening, Location (Patient has baseline right shoulder pain, from previous rotator injury. She also complains of continuous lower back pain and spasms, though this is improved since she has been in her new recliner. She reports she needs to go "see the chiropractor", but again does not have a plan or has followed through on this. She does have new pain and persistent headache, she is using some acetaminophen. She is unable to attribute this to anything is particular, though she has multiple risk factors and is most likely is multifactorial) Tiredness/Fatigue: Moderate (4-6) Drowsiness/Sedation: Moderate (4-6), Comment (Tends to stay up late into the early hours, playing on the computer. She reports she is "addicted to computer games". But she sleeps until late.) Nausea: None Depression: Moderate (4-6) Anxiety: Severe (7-10) (Patient denies anxiety, though does present is quite anxious, pressured speech, difficulty following through on a thought nor making any kind of solid plans. She is quite isolated, and often does not speak to anyone for days.) Anorexia: None Sleep: Variable sleep pattern Constipation: Yes, Intermittent constipation Feelings of wellbeing/Perceived Quality of Life: Fair, Acceptable, Worsening Performance Status: The patient denies functional decline, patient does describe doing less, she is only bathing every other week because of her dyspnea and fatigue as well as lower extremity weakness. She is using more instant meals, she cannot tolerate being in the kitchen for long periods of time for cooking. She does spend most of her time in the recliner, she uses a power wheelchair to go back and forth to the bathroom. I would put her at a PPS of 40% - Palliative Care Discussion: Patient does seem more scattered, with more cognitive deficits and difficulty with short-term memory. She is much more tangential in her thinking, difficulty putting together plans for all the things that she wants "fixed". Patient does recognize she has serious illness, limited life expectancy, though on the flip side will talk about traveling to [place] and to driving and going to the market. Patient's son is visiting this weekend, encouraged her to talk with him more about the struggles that she is enduring currently. It does need more assistance, but again has multiple barriers and difficulty following through in enlisting help. Palliative care attempting to provide direction, cognitive behavioral therapy in the context of challenging some of her unrealistic thinking, as well as helping her set some priorities and goals for follow- through. Patient does have a SHERRY ST in place, which is DNA R, and selective treatments. Patient though will need a more robust plan for end of life, unclear if this is going to be possible given patient having difficulty following through on short-term planning and finding adequate resources. Impression and Recommendations - Palliative Care Impression: This is a 73-year-old woman who has advanced stage pulmonary fibrosis, who is mostly homebound, and presents with anxiety, headache, depression, and significant dyspnea. She does present today with notable cognitive decline, declining functional status, and tangential thinking. Palliative care team to continue provide support for symptom management, anticipatory guidance, short- term and long-term planning and transition to hospice when appropriate Recommendations/Counseling Done: 1. Advanced pulmonary fibrosis patient remains quite compromised, she has had some improvement though of with the increase to 10 L concentrator. She is able to relay she understands she is a limited prognosis. She had really started her sildenafil 20 mg twice daily, she reports had a conversation with her mechanical service representative regarding this, she had had to pay out of pocket as she does not have a diagnosis of pulmonary hypertension, and thought she had "give it another try". She does not have any plans for follow-through or what to do in the p rescription runs out. We did discuss in the context of Dr. Wilson's note that he had recommended a CT scan to see if there is significant new findings and consider changing from Azathioprine to mycophenolate. Patient does not recall this conversation. I agreed I would contact the mechanical service representative to see if this was recommended given her ongoing decline. Patient's goals are to do as much as she can to improve her quality and quantity of life. 2. Headache pain. Patient challenged to pick one symptom and appointment to follow through on, patient able to create multiple barriers regarding trans portation, and making appointments. Patient did agree to follow-up with her caregiver when he was available, and make appointment with headache doctor. Recommended not to plan anything else other than this 1 appointment, she tends to over plan and most likely not follow through. This does appear to be a priority for her, we will down the steps for follow through. 3. Thickened overgrowth toenails. Instructed not to cut her own toenails, given she is on Coumadin, and has caused multiple episodes of bleeding before. We discussed in the context of her circulation and high risk for complications would recommend she make a follow-up appointment with staging technician. Dr. Hameed is in [place] and can use paratransit. 4. Depression. Patient is on antidepressants, she continues to be quite iso lated. Counseling provided regarding other resources to access, has made referral to palliative care behavioral intervention specialist, volunteer, and encouraged reaching out to family to provide increase interaction and assistance. Patient remains again quite resistant to any suggestions and/or follow through 5. Advanced care planning. Patient does have a SHERRY ST in place, she does understand the serious nature of her illness, but has very little insight to her ongoing decline and increased care needs. Patient has been given multiple community resources, assistance and recommendations for follow-through, patient remains quite anxious to making any kinds of changes. Patient is quite adamant she wants to stay in her home for as long as possible, she has been in [place] before for care, will continue to evaluate for patient's readiness and transition to hospice as earlier referral would assist her in meeting her goals with more support and planning. Time Spent: The minutes was given 50% of this done in counseling regarding setting priorities, follow through on physician appointments, anticipatory guidance as well as counseling for anxiety and depression
== END 2018-07-14 17:44 | disposition home or self-care (01) ==
LOC: PC 17:43
PROVIDERS: ATTEND Nurse Practitioner Adult Health
DX: Z51.5 Encounter for palliative care (principal); J84.10 Pulmonary fibrosis, unspecified; R09.02 Hypoxemia; Z99.81 Dependence on supplemental oxygen; R51 Headache; R41.89 Other symptoms and signs involving cognitive functions and awareness; R53.83 Other fatigue; F41.9 Anxiety disorder, unspecified; F32.9 Major depressive disorder, single episode, unspecified; Z86.711 Personal history of pulmonary embolism; Z79.01 Long term (current) use of anticoagulants; Z79.52 Long term (current) use of systemic steroids; Z66 Do not resuscitate
CPT/HCPCS: 99350

== ENCOUNTER 2018-08-06 14:41 | Outpatient (CLI) | payer MEDICARE, OTHER | END 2018-08-06 14:42 | disposition EMS.NT | LOC: EMS 14:41 | PROVIDERS: ATTEND Surgery | DX: R51 Headache (principal); R42 Dizziness and giddiness; R03.1 Nonspecific low blood-pressure reading ==

== ENCOUNTER 2018-09-06 19:11 | Outpatient (CLI) | payer MEDICARE, OTHER | END 2018-09-06 19:12 | disposition home or self-care (01) | LOC: EMS 19:11 | PROVIDERS: ATTEND Surgery | DX: R51 Headache (principal) | CPT/HCPCS: A0425; A0429 ==

== ENCOUNTER 2018-09-06 19:28 | Emergency (ER) | payer MEDICARE, OTHER ==
--- NOTE | 2018-09-06 20:42 | ED Physician Documentation ---
PD HPI HEADACHE - Stated complaint Stated Complaint: HOOVER - Chief complaint Chief Complaint: General - History obtained from History obtained from: Patient - History of Present Illness Timing - onset: How many months ago (has had intermittent right posterior headache for 2 months, intermittent, with worse/more often the past couple of days. Today had abrupt worsening right occipital headache. No near syncope. No focal weaknesses.) Timing - details: Abrupt onset, Still present, Intermittant Worst headache ever?: Worst headache ever? (today was the worst of the headaches. She has history of migraines when younger but has not had a true migraine since .) Quality: Stabbing Associated symptoms: Nausea. No: Fever, Stiff neck, Vomiting, Weakness, Numbness, Eye pain Worsened by: No: Light, Noise Contributing factors: No: Anticoagulated Similar symptoms before: Diagnosis (migraines when younger. No recent similar headaches.) Recently seen: Clinic (seen by PMD and has been referred to [facility] at [place], and Pain Clinic in [place]) Review of Systems Constitutional: denies: Fever, Chills, Myalgias Eyes: reports: Photophobia (mild), Other (denies scotomata). denies: Loss of vision Nose: denies: Rhinorrhea / runny nose, Congestion Throat: denies: Sore throat Respiratory: denies: Cough GI: reports: Nausea. denies: Abdominal Pain, Vomiting, Diarrhea : denies: Dysuria, Frequency Skin: denies: Rash, Lesions Musculoskeletal: reports: Neck pain, Back pain (chronic low back pain) Neurologic: reports: Generalized weakness. denies: Focal weakness, Numbness, Near syncope, Confused PD PAST MEDICAL HISTORY - Past Medical History Cardiovascular: Hypertension, Pulmonary embolism Respiratory: Shortness of breath, Other (Nonspecific pulmonary fibrosis) Neuro: Migraines (Hx), Tremors Endocrine/Autoimmune: None GI: GERD : Incontinence, Frequency HEENT: Other Psych: Depression, Anxiety Musculoskeletal: Osteoarthritis, Chronic back pain Derm: Other (candidiasis in skin folds) - Past Surgical History Past Surgical History: Yes General: Cholecystectomy, Colonoscopy, EGD Ortho: Knee replacement, Carpal Tunnel surgery, Spine surgery, Other /GASKET FORMER: 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 Cardiovascular: Cardiac catheterization HEENT: Tonsil/Adenoidectomy Derm: Other - Present Medications Home Medications: Ambulatory Orders Medication Instructions Recorded Confirmed Acetylcysteine 600 mg PO DAILY 11/08/13 07/14/18 [M-[id number]-Cysteine] Prednisone 10 mg PO DAILY 11/08/13 07/14/18 azaTHIOprine [Azathioprine] 50 mg PO QDBREAKFAST 11/08/13 07/14/18 Amitriptyline [Elavil] 20 mg PO QPM 06/15/14 07/14/18 Warfarin [Coumadin] 5 - 10 mg PO DAILY 06/15/14 07/14/18 Citalopram Hydrobromide [Celexa] 10 mg PO DAILY 07/06/16 07/14/18 buPROPion [Wellbutrin Sr] 150 mg PO BID 07/06/16 07/14/18 Biotin 5,000 mg PO DAILY 01/06/18 07/14/18 Flaxseed Oil 1 cap PO DAILY 01/06/18 07/14/18 Nystatin [Nystop] 1 applic TOP BID PRN MDD rash 01/06/18 07/14/18 Tumeric 1 tab PO DAILY 01/06/18 07/14/18 azaTHIOprine [Azathioprine] 100 mg PO QPM 01/06/18 07/14/18 Ipratropium [place] 1 inh JESSI BID 06/08/18 07/14/18 Melatonin 5 mg PO DAILY PM PRN 06/08/18 07/14/18 Sildenafil Citrate [Sildenafil] 20 mg PO BID 07/14/18 07/14/18 Dexamethasone [Decadron] 4 mg PO DAILY #5 tablet 09/07/18 Oxycodone HCl 5 mg PO Q6H PRN #20 tablet 09/07/18 - Allergies Allergies/Adverse Reactions: Allergies Allergy/AdvReac Type Severity Reaction Status Date / Time amoxicillin Allergy Intermediate Rash Verified 09/06/18 21:40 clavulanic acid Allergy Unknown Verified 09/06/18 21:40 Penicillins Allergy Unknown Verified 09/06/18 21:40 - Social History Does the pt smoke?: No Smoking Status: Former smoker - Family History Family history: reports: Non contributory - POLST Patient has POLST: Yes PD ED PE NORMAL - Vitals Vital signs reviewed: Yes - General General: Alert and oriented X 3, Well developed/nourished - HEENT HEENT: Atraumatic, PERRL, EOMI, Ears normal, Pharynx benign - Neck Neck: Supple, no meningeal sign, No bony TTP (but is tender at occipital ridge both sides but mainly right side. No rash nor sores. Trigger point injection done there on right at point of tenderness, using Kenalog and Lido. ), No adenopathy - Cardiac Cardiac: RRR, No murmur - Respiratory Respiratory: Clear bilaterally - Abdomen Abdomen: Soft, Non tender, Other (obese truncally) - Back Back: No CVA TTP - Derm Derm: Normal color, Warm and dry - Extremities Extremities: No tenderness to palpate, Normal ROM s pain - Neuro Neuro: Alert and oriented X 3, box builder 2-12 intact, No motor deficit, No sensory deficit, Normal speech Eye Opening: Spontaneous Motor: Obeys Commands Verbal: Oriented GCS Score: 15 - Psych Psych: Normal mood, Normal affect Results - Vitals Vitals: Vital Signs - 24 hr 09/06/18 09/06/18 09/06/18 19:37 22:12 22:30 Temperature 36.2 C L Heart Rate 82 81 72 Respiratory 22 18 18 Rate Blood Pressure 174/109 H 168/96 H 168/96 H O2 Saturation 99 100 97 09/06/18 09/07/18 09/07/18 23:09 00:23 01:05 Temperature Heart Rate 85 81 83 Respiratory 18 18 18 Rate Blood Pressure 195/92 H 175/89 H 151/96 H O2 Saturation 98 98 97 09/07/18 01:20 Temperature 37.1 C Heart Rate Respiratory Rate Blood Pressure O2 Saturation Oxygen O2 Source [With Activity] Nasal cannula O2 Source [Without Activity] Nasal cannula O2 Source Nasal cannula - Labs Labs: Laboratory Tests 09/06/18 09/06/18 09/06/18 21:30 21:30 21:30 WBC 6.1 RBC 3.66 L Hgb 12.2 Hct 37.7 MCV 102.9 H MCH 33.3 H MCHC 32.4 RDW 17.3 H Plt Count 212 MPV 7.8 L Neut # (Auto) 4.7 Lymph # (Auto) 0.8 L Erath # (Auto) 0.5 Eos # (Auto) 0.0 Baso # (Auto) 0.0 Absolute Nucleated RBC 0.01 Nucleated RBC % 0.2 ESR PT 21.8 H INR 1.9 H Sodium 136 Potassium 3.9 Chloride 94 L Carbon Dioxide 36 H Anion Gap 6.0 BUN 19 Creatinine 0.8 Estimated GFR (MDRD) 71 L Glucose 111 H Calcium 8.9 Magnesium 1.8 Total Bilirubin 0.8 AST 19 ALT 10 Alkaline Phosphatase 57 Total Protein 6.7 Albumin 3.6 Globulin 3.1 Albumin/Globulin Ratio 1.2 Lipase 33 09/06/18 21:30 WBC RBC Hgb Hct MCV MCH MCHC RDW Plt Count MPV Neut # (Auto) Lymph # (Auto) Erath # (Auto) Eos # (Auto) Baso # (Auto) Absolute Nucleated RBC Nucleated RBC % ESR 44 H PT INR Sodium Potassium Chloride Carbon Dioxide Anion Gap BUN Creatinine Estimated GFR (MDRD) Glucose Calcium Magnesium Total Bilirubin AST ALT Alkaline Phosphatase Total Protein Albumin Globulin Albumin/Globulin Ratio Lipase - Rads (name of study) head and neck angio Radiology: Prelim report reviewed (no acute findings, bleeding, swelling, tumors. No dissections. ), See rad report PD MEDICAL DECISION MAKING - ED course Complexity details: reviewed results, re-evaluated patient (headache improved with meds, and normal imaging. consider more likely migraine or muscle tension, occipital neuritis, etc. ), considered differential (pain in neck area, worse with movement and palpation. No neuro deficits. However she is older and has severe neck pain radiating to her right head, so concern for vascular such as dissection.), d/w patient Departure - Departure Disposition: 01 Home, Self Care Clinical Impression: Acute headache Qualifiers: Headache type: unspecified Intractability: not intractable Qualified Code(s): R51 - Headache Condition: Stable Record reviewed to determine appropriate education?: Yes Instructions: ED Cephalgia Unspecified Follow-Up: Alexi Titus MD [Primary Care Provider] - Prescriptions: Dexamethasone [Decadron] 4 mg PO DAILY #5 tablet Oxycodone HCl 5 mg PO Q6H PRN #20 tablet PRN Reason: Headache Comments: Heat and massage can be good in the back of the neck to help with some of the pains. Continue usual medications. Add Tylenol and/or oxycodone as needed for pain. Decadron steroid daily for 5 more days. Follow-up with pain specialist on Friday and headache specialist next Friday as planned. Discharge Date/Time: 09/07/18 01:55
[2018-09-06] MEDS ORDERED: SODIUM CHLORIDE 0.9% 1,000 ML IV ONE (21:13)
[2018-09-06] MEDS ORDERED: MORPHINE 2 MG/ML SYRINGE IVP STA (21:14)
[2018-09-06] MEDS ORDERED: ONDANSETRON 4 MG/2 ML VIAL IVP STA (21:14)
[2018-09-06 21:41] LABS: BASOPHILS % (AUTO) 0.5 %; EOSINOPHILS % (AUTO) 0.4 %; HGB - HEMOGLOBIN 12.2 g/dL (12.0-16.0); LYMPHOCYTES # (AUTO) 0.8 10^3/uL (1.5-3.5); LYMPHOCYTES % (AUTO) 12.4 %; MEAN CORPUSCULAR HEMOGLOBIN 33.3 pg (27.0-31.0); MEAN CORPUSCULAR HGB CONC 32.4 g/dL (32.0-36.0); MEAN CORPUSCULAR VOLUME 102.9 fL (81.0-99.0); MEAN PLATELET VOLUME 7.8 fL (7.9-10.8); MONOCYTES # (AUTO) 0.5 10^3/uL (0.0-1.0); MONOCYTES % (AUTO) 8.8 %; NEUTROPHILS # (AUTO) 4.7 10^3/uL (1.5-6.6); NEUTROPHILS % (AUTO) 77.9 %; PLT - PLATELET COUNT 212 10^3/uL (130-450); RED BLOOD COUNT 3.66 10^6/uL (4.20-5.40); RED CELL DISTRIBUTION WIDTH 17.3 % (12.0-15.0); WHITE BLOOD COUNT 6.1 x10^3/uL (4.8-10.8)
[2018-09-06 21:46] LABS: INR 1.9 (0.8-1.2); PT - PROTHROMBIN TIME 21.8 secs (9.9-12.6)
[2018-09-06 22:04] LABS: ALBUMIN 3.6 g/dL (3.2-5.5); ALBUMIN/GLOBULIN RATIO 1.2 (1.0-2.2); BILIRUBIN,TOTAL 0.8 mg/dL (0.2-1.0); CALCIUM 8.9 mg/dL (8.5-10.3); CREATININE 0.8 mg/dL (0.4-1.0); MAGNESIUM 1.8 mg/dL (1.7-2.8); TOTAL PROTEIN 6.7 g/dL (6.7-8.2)
[2018-09-06] MEDS ORDERED: IOVERSOL 320 100 ML VIAL IVP ONE ×2 (22:17→23:38)
[2018-09-06] MEDS ORDERED: LIDOCAINE MPF 1%-EPI 1:200000 30 ML VIAL SUBQ STA (22:53)
[2018-09-06] MEDS ORDERED: TRIAMCINOLONE 40 MG/ML VIAL IM STA (22:53)
--- NOTE | 2018-09-07 00:13 | CT Report ---
Reason: right headache and neck pain severe today Procedure Date: 09/06/2018 Accession Number: [id number] / [id number] Procedure: CT - ANGIO HEAD W CPT Code: FULL RESULT: EXAM: CT ANGIOGRAM HEAD. CT SCAN OF THE HEAD WITHOUT AND WITH CONTRAST. EXAM DATE: 09/06/2018 11:12 PM CLINICAL HISTORY: Right headache and neck pain severe today. COMPARISON: HEAD W/O 03/19/2017 2:41 PM. TECHNIQUE: - CT Scan Head: Using a multidetector scanner, axial images were acquired from the foramen magnum to the skull vertex prior to and following contrast administration. - CT Angiogram: Using a multidetector scanner, high-resolution axial images were acquired from the skull base through vertex following rapid infusion of intravenous contrast. Reformats: Multiplanar MIP reformats were reconstructed. Nascet criteria used for stenosis measurement. IV Contrast: Optiray 320 80ML. In accordance with CT protocol optimization, one or more of the following dose reduction techniques were utilized for this exam: automated exposure control, adjustment of mA and/or KV based on patient size, or use of iterative reconstructive technique. FINDINGS: NON-CONTRAST HEAD: Parenchyma: No intraparenchymal hemorrhage. No evidence of mass, midline shift, or CT findings of infarction. Drummond-white differentiation is distinct. Extraaxial Spaces: Normal for age. No subdural or epidural collections identified. Ventricles: Normal in size and position. Sinuses and orbits: Bilateral lens replacement surgery, as before. Bilateral optic nerve drusen. Paranasal sinuses are unremarkable. Bones: No evidence of fracture or calvarial defect. Other: None. POST-CONTRAST HEAD: No abnormal enhancement. CT ANGIOGRAM HEAD: Vertebral arteries are codominant. Basilar artery and both posterior cerebral arteries are patent and unremarkable. 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 There is atherosclerotic calcification of both carotid siphons without definite flow limiting stenosis. Both anterior and middle cerebral arteries are patent and unremarkable. Patent anterior communicating artery. DURAL VENOUS SINUSES AND MAJOR CENTRAL VEINS: Patent. IMPRESSION: CT Head: No acute intracranial abnormality. Specifically, no evidence of acute infarct, hemorrhage, or mass lesion. No abnormal enhancement. CTA Head: Atherosclerotic calcification of both carotid siphons without definite flow limiting stenosis. Intracranial circulation otherwise unremarkable. No large vessel occlusion or aneurysm. Patent dural venous sinuses. [facility]
--- NOTE | 2018-09-07 00:19 | CT Report ---
Reason: right neck and head pain severe today Procedure Date: 09/06/2018 Accession Number: [id number] / [id number] Procedure: CT - ANGIO NECK W/WO CPT Code: FULL RESULT: EXAM: CT ANGIOGRAM NECK EXAM DATE: 09/06/2018 11:12 PM. CLINICAL HISTORY: Right neck and head pain severe today. COMPARISON: HEAD W/O 03/19/2017 2:41 PM HEAD ANGIO 09/06/2018 10:48 PM CHEST ANGIO 07/05/2016 5:21 PM. TECHNIQUE: Routine axial helical imaging was performed from the skull base through the aortic arch. Reconstructions: Routine multiplanar 3D MIP reconstructions. IV Contrast: Optiray 320, 80 cc. Evaluation of arterial stenosis is based on a NASCET method of measurement. In accordance with CT protocol optimization, one or more of the following dose reduction techniques were utilized for this exam: automated exposure control, adjustment of mA and/or KV based on patient size, or use of iterative reconstructive technique. FINDINGS: Aortic arch, origins of the great vessels, brachiocephalic in both subclavian arteries appear patent. Right Carotid: Atherosclerotic calcification of the right ICA origin without stenosis. Left Carotid: Atherosclerotic calcification about the left carotid bulb without stenosis. Vertebrals: Both vertebral arteries are patent throughout the neck. Intracranial Circulation: See CT angiogram head report from the same date. Other: Bilateral airspace disease at both lung apices. Entire extent not imaged. IMPRESSION: 1. There is atherosclerotic calcification of both carotid arteries without stenosis. 2. Patent vertebral arteries in the neck bilaterally. 3. No findings concerning for dissection. 4. Bilateral apical lung disease, this appears progressive on the right. Entire extent not imaged. [facility]
[2018-09-07] MEDS ORDERED: DEXAMETHASONE 10 MG/ML VIAL IVP STA (00:33)
[2018-09-07] MEDS ORDERED: KETOROLAC 15 MG/ML VIAL IVP STA (00:33)
[2018-09-07] MEDS ORDERED: MORPHINE 10 MG/ML VIAL IVP STA (00:33)
[2018-09-07 01:05] VITALS: BP 151/96
== END 2018-09-07 01:55 | disposition home or self-care (01) ==
LOC: EDUNIT# → ED 19:28
DX: R51 Headache (principal); I10 Essential (primary) hypertension; Z86.711 Personal history of pulmonary embolism; Z79.01 Long term (current) use of anticoagulants; Z96.659 Presence of unspecified artificial knee joint; Z87.891 Personal history of nicotine dependence
CPT/HCPCS: 36415; 70496; 70498; 80053; 83690; 83735; 85025; 85610; 85651; 96361; 96374; 96375; 96376; 99283; 99284; J2270; Q9967

== ENCOUNTER 2018-09-09 20:48 | Outpatient (CLI) | payer MEDICARE, OTHER ==
--- NOTE | 2018-09-09 20:50 | CONSULTATION NOTE ---
Palliative Care Follow Up - Referral Referring Provider: Dr. Alexi Titus Time of Visit: [id number] Referral setting: Home Referral Reason: Pulmonary Fibrosis/Headaches - Information Sources Records reviewed: Previous records reviewed History/Review of Systems obtained from: Patient Exam limitations: No limitations - History of Present Illness Update Brief HPI Update: 3-year-old woman who has advanced stage of pulmonary fibrosis, attributed to be idiopathic. She also has a history of pulmonary embolus for which she does on warfarin, titrated by her primary care provider. She continues to have severe respiratory compromise, with desaturation of any kind of movement, gets tacky easily, keeps her oxygen use around 4-5 L, and up to 8-10 when moving. She is planning to follow-up with Dr. Wilson, as he recommended CT scan for looking at further medication management changes. She has not made this appointment, is planning to do it in the next few weeks. Patient also has had worsening headaches, this came to a accumulation, on 09/06. Had been in bed for several days, pain was excruciating, had used some oxycodone with only mild relief. Did end up going to the ED, workup did not show any significant findings. She did have a CT angios the neck, which does show atherosclerotic calcifications of both carotid arteries though without stenosis. In no acute intracranial abnormality or large vessel occlusion or aneurysm. Patient reports today it is much improved, has been using oxycodone intermittently with good relief. She still has appointments for follow-up with specialist, which she is planning to keep. Patient presents today is quite pale, does complain of increased sinus pressure and difficulty with allergies. She does find herself more breathless, standing up is more of an effort, she is unable to lay down flat. He does have intermittent sinus pressure and congestion, which interferes with her ability to breathe. She does admit to some functional decline, and more difficulty with tolerating activity. She continues to have "bad sleep habits" and goes to bed at about 2-3 am and not up until noon. She remains resistant to hiring any more help, has a few hours once a week. She remains quite anxious, isolated and often expresses feelings of loneliness. Social History - Living Situation Living arrangement: At home Living Situation: Alone Support System: Patient lives at home, with very little support. She has a neighbor checks on her frequently, a caregiver for a few hours a week but does heavier things. She has a daughter in the area as well as a [id number] but neither provide practical R hands-on support. Patient's son who is her D POA, is in [place]. Patient continues to be quite resistant to increasing support in the home. Medications/Allergies - Medications Home Medications: Ambulatory Orders Medication Instructions Recorded Confirmed Acetylcysteine 600 mg PO DAILY 11/08/13 09/11/18 [[id number]-[id number]-Cysteine] Prednisone 10 mg PO DAILY 11/08/13 09/11/18 azaTHIOprine [Azathioprine] 50 mg PO QDBREAKFAST 11/08/13 09/11/18 Amitriptyline [Elavil] 20 mg PO QPM 06/15/14 09/11/18 Warfarin [Coumadin] 5 - 10 mg PO DAILY 06/15/14 09/11/18 Citalopram Hydrobromide [Celexa] 10 mg PO DAILY 07/06/16 09/11/18 buPROPion [Wellbutrin Sr] 150 mg PO BID 07/06/16 09/11/18 Biotin 5,000 mg PO DAILY 01/06/18 09/11/18 Flaxseed Oil 1 cap PO DAILY 01/06/18 09/11/18 Nystatin [Nystop] 1 applic TOP BID PRN MDD rash 01/06/18 09/11/18 Tumeric 1 tab PO DAILY 01/06/18 09/11/18 azaTHIOprine [Azathioprine] 100 mg PO QPM 01/06/18 09/11/18 Ipratropium [place] 1 inh JESSI BID 06/08/18 09/11/18 Melatonin 5 mg PO DAILY PM PRN 06/08/18 09/11/18 Oxycodone HCl 5 mg PO Q6H PRN #20 tablet 09/07/18 09/11/18 - Allergies Allergies/Adverse Reactions: Allergies Allergy/AdvReac Type Severity Reaction Status Date / Time amoxicillin Allergy Intermediate Rash Verified 09/06/18 21:40 clavulanic acid Allergy Unknown Verified 09/06/18 21:40 Penicillins Allergy Unknown Verified 09/06/18 21:40 Review of Systems - Constitutional Constitutional: reports: Fatigue. denies: Fever, Chills - Eyes Eyes: reports: Vision loss, Corrective lenses - Ears, Nose & Throat Ears, Nose & Throat: reports: Dry mouth - Cardiovascular Cardiovascular: reports: Exertional dyspnea, Decr. exercise tolerance, Orthopnea. denies: Chest pain - Respiratory Respiratory: reports: SOB at rest, SOB with exertion - Gastrointestinal Gastrointestinal: reports: Constipation, Good appetite. denies: Nausea - Genitourinary Genitourinary: reports: Frequency, Urgency, Incontinence - Musculoskeletal Musculoskeletal: reports: Stiffness, Muscle weakness, Transfer issues (uses power chair in home; can pivot transfer independently) - Integumentary Integumentary: reports: Rash (under breasts/abdominal folds), Dryness - Neurological Neurological: reports: General weakness, Headache - Psychiatric Psychiatric: reports: Depression, Anxiety - All Other Systems All Other Systems: reports: Reviewed and negative Physical Exam - Vital Signs Temperature: 97.4 C Pulse Rate: 64 Respiratory Rate: 22 O2 Saturation: 94 (5 liters) Blood Pressure: 152/94 - Physical Exam General Appearance: positive: Mild distress, Anxious Eyes Bilateral: positive: Normal inspection ENT: positive: No signs of dehydration Neck: positive: No JVD, Trachea midline Cardiovascular: positive: Regular rate & rhythm Respiratory: positive: Diminished throughout Abdomen: positive: Soft, Nml bowel sounds Skin: positive: Pallor, Dryness Extremities: positive: Pedal edema (trace) Neurologic/Psychiatric: positive: Oriented x3, Mood/affect nml, Weakness, Flat affect Palliative Care - POLST Patient has POLST: Yes POLST Status: DNR, Selective Treatment Pain: Pain improved, Location (pain right side of neck; headache with sinus pres sure/right cheek base and rastafarian; has improved since ED visit; using mostly APAP and oxycodone for rescue with good results.) Tiredness/Fatigue: Moderate (4-6) Drowsiness/Sedation: Mild (1-3) Nausea: None Depression: Mild (1-3) Anxiety: Moderate (4-6) Dyspnea: Severe (7-10) Anorexia: Moderate (4-6) Sleep: Sleeps poorly Constipation: Yes Feelings of wellbeing/Perceived Quality of Life: Fair, Acceptable Performance Status: Patient with less activity tolerance, not attending to ADLs as consistently because of headache pain and more difficulty with activity intolerance. Remains resistant to increased assistance. - Palliative Care Discussion: Patient wanted to revisit hospice conversation again. Reports daughter has been quite cranky with her and having to pick her up at the ED, told her she had hospice this would have happened. We discussed again in the context of patient 's goals, patient still wants to continue to look at further treatments and support for her pulmonary fibrosis, including follow-up with Dr. Wilson this next month. She would accept hospitalization, she is not ready or willing to focus on comfort measures only. We also revisited again that hospice is not 24-hour care, nor transportation. They are available 24/7 help with pain and symptom management, but would not be the answer for her need for increasing care giving. Patient does not feel again that she is ready to "give up". She does have a [employer] [facility], she is a DNA R if she is "gone she is gone" but otherwise would accept hospitalization and intervention. She still perceives she has adequate quality of life, though that it is worsening she is not distressed nor perceives herself as having significant suffering. She would like to get her headache pain controlled, though I think suspect this is multifactorial. Results - Lab Results Lab results reviewed: Yes Lab and Imaging Results: Recent labs at 414 ED visit WBC 6.1; hemoglobin 12.2; hematocrit 37.7. PT 21.8; INR 1.9; her GFR is 71 creatinine 0.8 BUN 19 carbon dioxide 36 chloride 94 potassium 3.9 and sodium 136 her ESR was 44 Impression and Recommendations - Palliative Care Impression: This is a 73-year-old woman who has advanced stage pulmonary fibrosis, who is mostly homebound, presents with ongoing anxiety, headache, depression, and progressive dyspnea. She continues with functional decline, mild cognitive decline, recently with a ED visit for exacerbation of her severe headaches. Patient continues to be quite isolated, at high risk as she is home alone with severe comorbidities. Palliative care to continue to provide support for pain and symptom management, and anticipatory guidance. Recommendations/Counseling Done: 1.Advanced pulmonary fibrosis. Patient remains quite compromised, she is still planning to follow-up with Dr. STEVEN WOO. Looking up possible medication change, at but needs CT and follow-up. Her granddaughter will be available in the next few weeks, she will follow through make an appointment. 2. Headache pain. Patient does have appointment this Friday, she is using acetaminophen and oxycodone with better relief. She did have an acute trip to the ED, ruled out anything serious. Will await long-term plan for her recommendations from new provider. 3. Depression. Patient continues to be quite isolated, she is open to visiting volunteer, has been difficulty following up her feeling a spot. This is most likely exacerbated with patient's getting her days and nights mixed up. Patient has been counseled on sleep hygiene multiple times, reviewed again the role for management of her depression, fatigue, insomnia, and possibly influencing her headache pain. Counseling provided regarding addressing her depression, feelings of isolation, using cognitive behavioral techniques, distraction, and reframing. 4. Generalized weakness. Patient does show some functional decline, am concerned regarding patient's isolation, and lack of help. She remains resistant to enlisting her pain for increased support in her home. 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 5. Advanced care planning. Counseling provided regarding the hospice benefit, goals of care again. Patient has been advised by many friends and family to consider hospice, patient's goals do not quite align, and does not meet the problem of caregiving needs. Patient in agreement to continue to revisit on a regular basis as patient gathers more information, particularly regarding if there are any further options for treatment of her pulmonary fibrosis. Time Spent: Exam minutes with greater than 50% of this done in counseling regarding hospice benefit, pain control and opioid safety with headache pain, sleep hygiene, and anticipatory guidance
== END 2018-09-09 20:49 | disposition home or self-care (01) ==
LOC: PC 20:48
PROVIDERS: ATTEND Nurse Practitioner Adult Health
DX: Z51.5 Encounter for palliative care (principal); J84.112 Idiopathic pulmonary fibrosis; F41.9 Anxiety disorder, unspecified; R51 Headache; F32.9 Major depressive disorder, single episode, unspecified; G47.00 Insomnia, unspecified; R53.1 Weakness; I65.23 Occlusion and stenosis of bilateral carotid arteries; Z86.711 Personal history of pulmonary embolism; Z79.01 Long term (current) use of anticoagulants; Z60.2 Problems related to living alone; Z99.81 Dependence on supplemental oxygen; Z66 Do not resuscitate
CPT/HCPCS: 99350

== ENCOUNTER 2019-01-13 15:56 | Outpatient (CLI) | payer MEDICARE, OTHER | END 2019-01-13 15:57 | disposition home or self-care (01) | LOC: LAB 15:56 | PROVIDERS: ATTEND Family Medicine | DX: Z86.711 Personal history of pulmonary embolism (principal); Z79.01 Long term (current) use of anticoagulants | CPT/HCPCS: 36415; 85610; 85730 ==

== ENCOUNTER 2019-09-29 12:15 | Outpatient (CLI) | payer MEDICARE, OTHER ==
--- NOTE | 2019-09-29 16:48 | CONSULTATION NOTE ---
Palliative Care Follow Up - Referral Referring Provider: Dr. Alexi Titus Time of Visit: [id number] Referral setting: Home Referral Reason: Trauma LLE wound/cellulitis/Pulmonary Fibrosis - Information Sources Records reviewed: Previous records reviewed History/Review of Systems obtained from: Patient Exam limitations: No limitations - History of Present Illness Update Brief HPI Update: This is a 74-year-old woman who has found stage pulmonary fibrosis, attributed to idiopathic etiology. She also has a history of pulmonary emboli for which she is on lifetime warfarin, titrated by her primary healthcare provider. I have not seen her for over a year, she does appear to have had actually quite a bit of decline, she does admit to weight loss, she is got temporal wasting, her extremities are much smaller, her obese abdomen is less. She is unable to weigh secondary to her breathlessness. She does admit to increasing breathlessness over the last few weeks to months, needing increased oxygen, increased difficulty recovering, her O2 at this time is at 6 L. She continues to live at home alone, though this is becoming more precarious. She was given 3 years, and is coming up on this third year, she does admit to decline and wondering if she is getting close to end-of-life. Though she remains quite upbeat, and continues to be in somewhat denial of her current situation. On 09/23 patient had a "slide" out of bed when she nodded off to sleep, she had trauma injury to her left abbasi area, given her underlying anti-coag status, she has significant bruising to her whole calf and now pooling down into her left foot. The area itself is about 3 cm round, and raised in a dome. She reports it started out as a "blister". It looks like a fairly solid hematoma at this point in time. She is on currently Sulfamethoxazole/trimethoprim started yesterday secondary to delay in drug delivery, 1 tab twice a day for 7 days. She does have some slight erythema around the area, though is not warm to touch. Her provider had requested that she get a "checkup", unclear in her notes she says home health, the patient had contacted palliative care. Patient reports it is painful, but improving, increased difficulty with weightbearing and has used intermittent half tab of oxycodone 5 mg. Patient continues to be quite anxious, she is breathless with any conversation. My concern is her color, she does have a fairly sallow almost jaundiced look to her, she does have dark circles around her eyes, and appears quite unwell. She has been housebound for long period of time, and has not been out to get labs or see MD. She reports she did eventually have headaches treated, that she is on a medication she cannot recall, I did look through her medication bottles I did not see anything that is not on her current list. She reports she feels a Mediset. Home remains cluttered, it is not dirty but patient is unknown "hoarder", does shop quite a bit of shopping on line. She recently had a walk-in tub/Jacuzzi put in, but unable to supported as her water heater cannot heat enough water. She does find it helpful though with seat and hand-held wand, But it has stressed her financially. Social History - Living Situation Living arrangement: At home Living Situation: Alone Support System: [place] provide much support, she is hiring her granddaughter 1 time a week to help her. Her son in [place] who does oversee her finances and I believe it is his house, is currently in [place] secondary to COVID-19 virus. They are somewhat at odds at this point in time. She has hired housekeeping, but no caregiving. Medications/Allergies - Medications Home Medications: Ambulatory Orders Medication Instructions Recorded Confirmed Acetylcysteine 600 mg PO DAILY 11/08/13 09/11/18 [N-[id number]-m-Cysteine] Prednisone 10 mg PO DAILY 11/08/13 09/29/19 azaTHIOprine [Azathioprine] 50 mg PO QDBREAKFAST 11/08/13 09/29/19 Amitriptyline [Elavil] 20 mg PO QPM 06/15/14 09/29/19 Warfarin [Coumadin] 5 - 10 mg PO DAILY 06/15/14 09/29/19 Citalopram Hydrobromide [Celexa] 10 mg PO DAILY 07/06/16 09/29/19 buPROPion [Wellbutrin Sr] 150 mg PO BID 07/06/16 09/29/19 Biotin 5,000 mg PO DAILY 01/06/18 09/29/19 Flaxseed Oil 1 cap PO DAILY 01/06/18 09/29/19 Nystatin [Nystop] 1 applic TOP BID PRN MDD rash 01/06/18 09/29/19 azaTHIOprine [Azathioprine] 100 mg PO QPM 01/06/18 09/29/19 Ipratropium [place] 1 inh JESSI BID 06/08/18 09/29/19 Melatonin 5 mg PO DAILY PM PRN 06/08/18 09/29/19 Oxycodone HCl 2.5 - 5 mg PO Q6H PRN 09/29/19 09/29/19 - Allergies Allergies/Adverse Reactions: Allergies Allergy/AdvReac Type Severity Reaction Status Date / Time amoxicillin Allergy Intermediate Rash Verified 09/06/18 21:40 clavulanic acid Allergy Unknown Verified 09/06/18 21:40 Penicillins Allergy Unknown Verified 09/06/18 21:40 Review of Systems - Constitutional Constitutional: reports: Fatigue, Weight loss. denies: Fever, Chills - Eyes Eyes: reports: Vision loss, Corrective lenses - Ears, Nose & Throat Ears, Nose & Throat: reports: Dry mouth - Cardiovascular Cardiovascular: reports: Edema, Lightheadedness, Exertional dyspnea, Decr. exercise tolerance, Orthopnea - Respiratory Respiratory: reports: Cough, Wheezing, Orthopnea, SOB at rest, SOB with exertion - Gastrointestinal Gastrointestinal: reports: Diarrhea (occasional), Bloating, Early satiety. denies: Constipation, Reflux/heartburn - Genitourinary Genitourinary: reports: Dysuria, Frequency, Other (cloudy urine) - Musculoskeletal Musculoskeletal: reports: Muscle aches, Stiffness, Limited range of motion, Muscle weakness, Transfer issues (has powerchair to maneuver in house) - Integumentary Integumentary: reports: Dryness, Other (trauma wound LLE) - Neurological Neurological: reports: General weakness, Headache (had improved; now worsening again), Memory problems (mild) - Psychiatric Psychiatric: reports: Depression, Anxiety - Hematologic/Lymphatic Hematologic/Lymphatic: reports: Bruising, Recurrent infections (currently being treated for cellulitis) - All Other Systems All Other Systems: reports: Reviewed and negative Physical Exam - Vital Signs Temperature: 96.7 C Pulse Rate: 72 Respiratory Rate: 20 O2 Saturation: 99 (at rest on 6 liters; decreases in 80s with movement) Blood Pressure: 144/78 - Physical Exam General Appearance: positive: No acute distress, Alert, Anxious Eyes Bilateral: positive: No scleral icterus, Other (dark circles around eyes) ENT: negative: Dry mucous membranes Neck: positive: Trachea midline Cardiovascular: positive: Regular rate & rhythm Respiratory: positive: Diminished throughout, Other (end inspiratory crackles related to pulmonary fibrosis). negative: No respiratory distress (breathlessness with conversation/movement), Wheezes, Rales, Rhonchi Abdomen: positive: Non-tender, Soft, Obese Skin: positive: Pallor (sallow almost jaundice color), Wound (see HPI) Extremities: positive: No pedal edema Neurologic/Psychiatric: positive: Oriented x3, Mood/affect nml, Weakness, Flat affect Palliative Care - POLST Patient has POLST: Yes POLST Status: DNR, Selective Treatment Pain: Pain worsening, Location (headache/frontal had resolved for short period of time last year; finding more frequent currently; pain in abbasi; using oxycodone 1/2 tab sparingly) Tiredness/Fatigue: Severe (7-10) Drowsiness/Sedation: Moderate (4-6) Nausea: None Anorexia: Mild (1-3) Dyspnea: Severe (7-10) Depression: Moderate (4-6) Anxiety: Severe (7-10) Feelings of wellbeing/Perceived Quality of Life: Fair, Acceptable, Worsening Constipation: Yes, Opoid induced, Managed Performance Status: Patient is able to transfer and pivot to chair, takes few steps. She does get quite breathless. Even transferring to the toilet she reports her sats decreased and her breathlessness remains complicated. She bathes maybe once a week, though has not been able to with her recent injury. She reports she sits in the new shower stall, and uses hand-held shower. Patient has always been challenged with bathing. She is doing her own meal prep, though this again takes quite a bit of effort on her part. She does appear to have some functional decline since I seen her last. - Palliative Care Discussion: Patient does perceive herself as getting worse, she does understand the seriousness of her illness. She may and somewhat concerned and anxious regarding high risk of further decline. She was to have followed up with her file system installer Dr. Wilson at [facility]. This was over a year ago, and she still is not managed to make an appointment because of transportation issues. She remains fairly focused in the moment, unrealistic about her abilities, and aware she is coming up on the three year prognosis of file system installer. She is willing to have Home Health and Palliative care support again. Her family is not pleased with her being by herself, she has been in assisted living before, and is very resistant to consider transitioning back. Patient does have a POLST as DNR and selective treatments, will need to have further goals of care conversations, this was more of an urgent visit for her leg. Impression and Recommendations - Palliative Care Impression: This is a 74-year-old woman who has advanced stage pulmonary fibrosis, who is homebound, he is continued to have high symptom burden and functional decline. She now presents with acute trauma left lower extremity injury, and needing assistance for wound care. Patient remains quite isolated and high risk at being home alone, she does have severe comorbidities. Palliative care to reinitiate support for pain and symptom management, and anticipatory guidance, and transition to hospice when appropriate. Recommendations/Counseling Done: 1. Left lower extremity trauma wound. Patient was started on Bactrim DS 1 tab twice daily for 7 days, just started yesterday. This is for cellulitis, she does have some erythema, most likely a good idea to have some coverage. Cleansed wound with normal saline, placed non-adherent Vaseline gauze over Neosporin and secured. Will have home health initiate wound care, cleanse wound normal saline, apply iodoform gauze for bacterial control, cover with Mepilex to manage drainage and wound bed. 2. Headache pain. Patient no longer has access to her "headache specialist". She is unable to locate the medications she has been taking, home health RN to go out tomorrow, will see if able to identify a new medication is not on her PCP list. 3. Depression/anxiety. Patient continues to be quite isolated, she was open to visiting volunteer prior, of course this is not available at this point in time with COVID-19. Patient does get her days and nights mixed up, not from dementia, but does stay up late playing games. She is currently at odds with her son, which is added to her distress. She also sees herself is declining. 4. Generalized weakness. Patient is showing functional decline, continues with minimal help and high risk for recurrent falls. We did discuss in the context possible's home safety, physical therapy referral, she will wait and see after she meets with home health RN if she is interested in following up and or with home health aide. 5. Advanced pulmonary fibrosis. Patient does perceive her underlying illness is worsening, is having increased respiratory distress with any kind of activity, longer recovery times, and doing poorly overall. She has not followed up at [facility], though I suspect there not many further interventions to offer. 6. Failure to thrive. Patient does present with increased fatigue, weight loss, feeling poorly overall. Will check CBC and CMP, has been greater than a year for labs. We will check her thyroid function as well. 7. Advanced care planning. Patient does have POLST in place DNR/selective treatments. Patient has been asking him past regarding hospice benefit. Agreed at this point in time will focus on home health, goal is to heal wound, will consider and follow-up if patient needs further support in home. Agreed to allow palliative care to continue to follow more closely as she had not responded for several months and was put on hold. Patient most likely would meet criteria at this point in time with her pulmonary fibrosis for hospice, if this was an alignment of her goals. Unfortunately she does not present with any primary caregiver. Time Spent: 45 minutes with greater than 50% of this done in counseling regarding management of wound, coordination of care, reestablishment of rapport, and anticipatory guidance. [facility]
== END 2019-09-29 12:16 | disposition home or self-care (01) ==
LOC: PC 12:15
PROVIDERS: ATTEND Nurse Practitioner Adult Health
DX: Z51.5 Encounter for palliative care (principal); S89.92XD Unspecified injury of left lower leg, subsequent encounter; R51 Headache; F41.8 Other specified anxiety disorders; R53.1 Weakness; J84.10 Pulmonary fibrosis, unspecified; R63.4 Abnormal weight loss; K59.03 Drug induced constipation; T40.2X5D Adverse effect of other opioids, subsequent encounter; Z99.81 Dependence on supplemental oxygen; Z79.01 Long term (current) use of anticoagulants; Z79.899 Other long term (current) drug therapy; Z79.52 Long term (current) use of systemic steroids; Z66 Do not resuscitate
CPT/HCPCS: 99215

== ENCOUNTER 2019-09-30 07:00 | Outpatient (CLI) | payer MEDICARE, OTHER ==
[2019-09-30 14:23] LABS: BASOPHILS % (AUTO) 0.2 %; EOSINOPHILS % (AUTO) 0.1 %; HGB - HEMOGLOBIN 10.7 g/dL (12.0-16.0); LYMPHOCYTES # (AUTO) 0.9 10^3/uL (1.5-3.5); LYMPHOCYTES % (AUTO) 9.5 %; MEAN CORPUSCULAR HEMOGLOBIN 34.7 pg (27.0-31.0); MEAN CORPUSCULAR HGB CONC 31.2 g/dL (32.0-36.0); MEAN CORPUSCULAR VOLUME 111.4 fL (81.0-99.0); MEAN PLATELET VOLUME 10.1 fL (7.9-10.8); MONOCYTES # (AUTO) 0.7 10^3/uL (0.0-1.0); MONOCYTES % (AUTO) 7.3 %; NEUTROPHILS # (AUTO) 7.8 10^3/uL (1.5-6.6); NEUTROPHILS % (AUTO) 82.4 %; PLT - PLATELET COUNT 207 10^3/uL (130-450); RED BLOOD COUNT 3.08 10^6/uL (4.20-5.40); WHITE BLOOD COUNT 9.4 x10^3/uL (4.8-10.8)
[2019-09-30 14:39] LABS: ALBUMIN 3.5 g/dL (3.2-5.5); BILIRUBIN,TOTAL 0.7 mg/dL (0.2-1.0); CALCIUM 8.9 mg/dL (8.5-10.3); CREATININE 0.9 mg/dL (0.4-1.0); TOTAL PROTEIN 6.9 g/dL (6.7-8.2)
[2019-09-30 14:49] LABS: PLATELET MORPHOLOGY NORMAL APPEARANCE (NORMAL)
[2019-09-30 14:50] LABS: PLATELET ESTIMATE, MANUAL NORMAL (130-450,000) (NORMAL)
== END 2019-09-30 23:59 | disposition home or self-care (01) ==
LOC: LAB.R 07:00
PROVIDERS: ATTEND Nurse Practitioner Adult Health
DX: R53.0 Neoplastic (malignant) related fatigue (principal); Z79.899 Other long term (current) drug therapy
CPT/HCPCS: 80053; 84443; 85025

== ENCOUNTER 2019-10-01 16:54 | Outpatient (CLI) | payer MEDICARE, OTHER | END 2019-10-01 16:55 | disposition critical access hospital (66) | LOC: EMS 16:54 | PROVIDERS: ATTEND Surgery | DX: Z99.81 Dependence on supplemental oxygen (principal) | CPT/HCPCS: A0425; A0429 ==

== ENCOUNTER 2019-10-01 17:12 | Emergency (ER) | payer MEDICARE, OTHER ==
[2019-10-01 17:30] VITALS: BP 150/105
[2019-10-01 18:13] LABS: BASOPHILS % (AUTO) 0.3 %; EOSINOPHILS % (AUTO) 0.1 %; HGB - HEMOGLOBIN 10.5 g/dL (12.0-16.0); LYMPHOCYTES # (AUTO) 0.2 10^3/uL (1.5-3.5); LYMPHOCYTES % (AUTO) 3.2 %; MEAN CORPUSCULAR HEMOGLOBIN 34.7 pg (27.0-31.0); MEAN CORPUSCULAR HGB CONC 31.3 g/dL (32.0-36.0); MEAN CORPUSCULAR VOLUME 110.9 fL (81.0-99.0); MONOCYTES # (AUTO) 0.3 10^3/uL (0.0-1.0); MONOCYTES % (AUTO) 4.2 %; NEUTROPHILS # (AUTO) 6.4 10^3/uL (1.5-6.6); NEUTROPHILS % (AUTO) 91.8 %; PLT - PLATELET COUNT 188 10^3/uL (130-450); RED BLOOD COUNT 3.03 10^6/uL (4.20-5.40); RED CELL DISTRIBUTION WIDTH 15.1 % (12.0-15.0)
--- NOTE | 2019-10-01 18:21 | ED Physician Documentation ---
History of Present Illness - Stated complaint Stated Complaint: ABNORMAL LABS - Chief complaint Chief Complaint: General - History obtained from History obtained from: Patient (74-year-old woman on Coumadin presents for elevated INR as an outpatient. She is on antibiotics and continued to take her Coumadin and checked it today and it was near 9. She is asymptomatic without bleeding, no hematochezia, no dark or tarry stools. She called her doctor's office who told her to come to the emergency department for "vitamin K and something else.") Review of Systems Constitutional: denies: Fever, Chills GI: denies: Abdominal Pain, Constipation, Diarrhea PD PAST MEDICAL HISTORY - Past Medical History Cardiovascular: Hypertension, Pulmonary embolism Respiratory: Shortness of breath, Other Neuro: Migraines, Tremors Endocrine/Autoimmune: None GI: GERD : Incontinence, Frequency HEENT: Other Psych: Depression, Anxiety Musculoskeletal: Osteoarthritis, Chronic back pain Derm: Other - Past Surgical History Past Surgical History: Yes General: Cholecystectomy, Colonoscopy, EGD Ortho: Knee replacement, Carpal Tunnel surgery, Spine surgery, 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: 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 Cardiovascular: Cardiac catheterization HEENT: Tonsil/Adenoidectomy Derm: Other - Present Medications Home Medications: Ambulatory Orders Medication Instructions Recorded Confirmed Acetylcysteine 600 mg PO DAILY 11/08/13 09/11/18 [J-[id number]-[id number]-Cysteine] Prednisone 10 mg PO DAILY 11/08/13 09/29/19 azaTHIOprine [Azathioprine] 50 mg PO QDBREAKFAST 11/08/13 09/29/19 Amitriptyline [Elavil] 20 mg PO QPM 06/15/14 09/29/19 Citalopram Hydrobromide [Celexa] 10 mg PO DAILY 07/06/16 09/29/19 buPROPion [Wellbutrin Sr] 150 mg PO BID 07/06/16 09/29/19 Biotin 5,000 mg PO DAILY 01/06/18 09/29/19 Flaxseed Oil 1 cap PO DAILY 01/06/18 09/29/19 Nystatin [Nystop] 1 applic TOP BID PRN MDD rash 01/06/18 09/29/19 Ipratropium [place] 1 inh JESSI BID 06/08/18 09/29/19 Melatonin 5 mg PO DAILY PM PRN 06/08/18 09/29/19 Oxycodone HCl 2.5 - 5 mg PO Q6H PRN 09/29/19 09/29/19 Cephalexin [Keflex] 500 mg PO 10/01/19 Nortriptyline HCl 25 mg PO 10/01/19 Warfarin Sodium [Jantoven] 5 mg ORAL DAILY 10/01/19 10/01/19 - Allergies Allergies/Adverse Reactions: Allergies Allergy/AdvReac Type Severity Reaction Status Date / Time amoxicillin Allergy Intermediate Rash Verified 10/01/19 17:29 clavulanic acid Allergy Unknown Verified 10/01/19 17:29 Penicillins Allergy Unknown Verified 10/01/19 17:29 - Social History Does the pt smoke?: No Smoking Status: Never smoker Does the pt drink ETOH?: Yes Does the pt have substance abuse?: No - Immunizations Immunizations are current?: Yes - POLST Patient has POLST: Yes PD ED PE NORMAL - Vitals Vital signs reviewed: Yes - General General: Alert and oriented X 3, No acute distress - Extremities Extremities: No edema, No calf tenderness / cord - Neuro Neuro: Alert and oriented X 3, Normal speech Results - Vitals Vitals: Vital Signs - 24 hr 10/01/19 10/01/19 17:24 17:25 Temperature 37.4 C Heart Rate 80 Respiratory 24 Rate Blood Pressure 150/105 H O2 Saturation 70 L 98 Oxygen O2 Source [With Activity] Nasal cannula O2 Source [Without Activity] Nasal cannula O2 Source Nasal cannula PD MEDICAL DECISION MAKING - ED course ED course: This is a 74-year-old woman who presents with elevated INR without evidence of bleeding. She was given oral vitamin K. She has a INR machine at home and we discussed not taking warfarin/Coumadin and starting to recheck it again on Friday. Departure - Departure Disposition: Home, Self Care Clinical Impression: Supratherapeutic INR Condition: Good Record reviewed to determine appropriate education?: Yes Comments: You received 5 mg of vitamin K orally here today. Do not take your blood thinner again until your INR is close to 2. Check it frequently while on antibiotics.
[2019-10-01 18:23] LABS: ALBUMIN 3.6 g/dL (3.2-5.5); ALBUMIN/GLOBULIN RATIO 1.1 (1.0-2.2); BILIRUBIN,TOTAL 0.7 mg/dL (0.2-1.0); CALCIUM 8.8 mg/dL (8.5-10.3); CREATININE 0.9 mg/dL (0.4-1.0)
[2019-10-01 18:27] LABS: PLATELET ESTIMATE, MANUAL NORMAL (130-450,000) (NORMAL); PLATELET MORPHOLOGY NORMAL APPEARANCE (NORMAL)
[2019-10-01] MEDS ORDERED: CHERRY SYRUP 10 ML UDC PO ONE (18:34)
[2019-10-01] MEDS ORDERED: PHYTONADIONE 10 MG/ML AMP PO ONE (18:34)
[2019-10-01 18:37] LABS: INR > 10.0 (0.8-1.2)
== END 2019-10-01 19:34 | disposition home or self-care (01) ==
LOC: EDUNIT# → ED 17:12
DX: R79.1 Abnormal coagulation profile (principal); Z86.711 Personal history of pulmonary embolism; Z79.01 Long term (current) use of anticoagulants; I10 Essential (primary) hypertension
CPT/HCPCS: 36415; 80053; 83690; 85025; 85610; 99283; A9270

== ENCOUNTER 2019-10-12 13:00 | Outpatient (CLI) | payer MEDICARE, OTHER ==
--- NOTE | 2019-10-12 17:41 | CONSULTATION NOTE ---
Palliative Care Follow Up - Referral Referring Provider: Dr. Alexi Titus Time of Visit: 9738-3183 Referral setting: Home Referral Reason: Endstage Idiopathic Pulmonary Fibrosis/Goals of Care - Information Sources Records reviewed: RN notes reviewed, Previous records reviewed History/Review of Systems obtained from: Patient Exam limitations: No limitations - History of Present Illness Update Brief HPI Update: This is a 74-year-old woman with advanced stage of pulmonary fibrosis, attributed to be idiopathic. She also has a history of pulmonary emboli for which she is on lifetime warfarin. She is continued to decline with increasing dyspnea, with weight loss, and worsening functional status. She does recognize she is getting to the later stages of her disease, and is struggling regarding her goals of care, and transitioning most likely to hospice. In the meantime she has sustained left abbasi injury, that did result in some mild cellulitis. She is getting home health RN for wound care, she still lives independently though this is becoming more difficult. Her son was visiting over the weekend, her hope would been to have a conversation regarding how best to support her at end-of-life, but essentially what she heard was he wanted to know what her plan was. He will be returning to [facility] in the next few weeks, he is currently in [place] with his . He is her D POA. She does have a daughter who lives here in [facility], though is minimally involved in her care. He does have a granddaughter who visits frequently and provide support with capital campaign fundraiser and shopping. Social History - Living Situation Living arrangement: At home Living Situation: Alone Support System: Patient is quite isolated, lives alone. She has very little social interaction, her neighbor across the street does check on her frequently but she has her own issues that she is caregiving for her . Patient has lived at [place] previously and will consider that possibly in the future. Patient has been very adamant she would not go to a convalescent home, but we discussed the realities of her ongoing functional decline and needs that she may have for end-of-life or as she gets more debilitated. Medications/Allergies - Medications Home Medications: Ambulatory Orders Medication Instructions Recorded Confirmed Acetylcysteine 600 mg PO DAILY 11/08/13 09/11/18 [E-Htnerp-v-Cysteine] Prednisone 10 mg PO DAILY 11/08/13 09/29/19 azaTHIOprine [Azathioprine] 50 mg PO QDBREAKFAST 11/08/13 10/12/19 Citalopram Hydrobromide [Celexa] 10 mg PO DAILY 07/06/16 09/29/19 buPROPion [Wellbutrin Sr] 150 mg PO BID 07/06/16 10/12/19 Biotin 5,000 mg PO DAILY 01/06/18 09/29/19 Flaxseed Oil 1 cap PO DAILY 01/06/18 09/29/19 Nystatin [Nystop] 1 applic TOP BID PRN MDD rash 01/06/18 09/29/19 Ipratropium Woodman 1 inh JESSI BID 06/08/18 09/29/19 Melatonin 5 mg PO DAILY PM PRN 06/08/18 09/29/19 Oxycodone HCl 2.5 - 5 mg PO Q6H PRN 09/29/19 09/29/19 Nortriptyline HCl 25 mg PO 10/01/19 Warfarin Sodium [Jantoven] 5 mg ORAL DAILY MDD titrated by PCP 10/01/19 10/12/19 - Allergies Allergies/Adverse Reactions: Allergies Allergy/AdvReac Type Severity Reaction Status Date / Time amoxicillin Allergy Intermediate Rash Verified 10/01/19 17:29 clavulanic acid Allergy Unknown Verified 10/01/19 17:29 Penicillins Allergy Unknown Verified 10/01/19 17:29 Review of Systems - Constitutional Constitutional: reports: Fatigue (patient goes to bed between 2 am and 5 am; sleeps late; does computer games), Weakness, Weight loss. denies: Fever, Chills - Eyes Eyes: reports: Vision loss, Corrective lenses - Ears, Nose & Throat Ears, Nose & Throat: reports: Nasal congestion (worsening; attributes to al lergies), Dry mouth - Cardiovascular Cardiovascular: reports: Lightheadedness, Exertional dyspnea, Decr. exercise tolerance - Respiratory Respiratory: reports: Cough, SOB at rest, SOB with exertion - Gastrointestinal Gastrointestinal: reports: Early satiety. denies: Diarrhea, Reflux/heartburn - Genitourinary Genitourinary: reports: Urgency, Incontinence (intermittent) - Musculoskeletal Musculoskeletal: reports: Stiffness, Limited range of motion, Muscle weakness, Transfer issues (uses power wheelchair; can pivot transfer; poor quad strength) - Integumentary Integumentary: reports: Dryness, Nail changes, Hair changes - Neurological Neurological: reports: General weakness, Headache, Memory problems (mild) - Psychiatric Psychiatric: reports: Depression, Anxiety. denies: Suicidal - Hematologic/Lymphatic Hematologic/Lymphatic: reports: Bruising, Blood clots (hx of PE on lifetime warfarin/checks own INR) - All Other Systems All Other Systems: reports: Reviewed and negative Physical Exam - Vital Signs Temperature: 96.5 C Pulse Rate: 64 Respiratory Rate: 20 O2 Saturation: 99 (6 liters) Blood Pressure: 122/78 - Physical Exam General Appearance: positive: Alert, Mild distress, Anxious Eyes Bilateral: positive: Normal inspection, Other (dark circles around eyes) ENT: positive: No signs of dehydration, Other (congestion) Neck: positive: Trachea midline Cardiovascular: positive: Regular rate & rhythm Respiratory: positive: Diminished in bases, Rales (dry fibrotic rub noted on inspiration;), Other (breathlessness with conversation). negative: Wheezes Abdomen: positive: Soft, Obese Skin: positive: Other (drsg intact) Extremities: positive: No pedal edema Neurologic/Psychiatric: positive: Oriented x3, Mood/affect nml, Weakness, Flat affect Palliative Care - POLST Patient has POLST: Yes POLST Status: DNR (daytime sleepiness with up at night), Selective Treatment Pain: Pain improved (LLE; still mild tenderness with manipulaton but improved) Tiredness/Fatigue: Moderate (4-6) Drowsiness/Sedation: Comment Nausea: None Anorexia: Mild (1-3), Weight loss Dyspnea: Severe (7-10) Depression: Moderate (4-6) Anxiety: Moderate (4-6) Feelings of wellbeing/Perceived Quality of Life: Fair, Acceptable, Worsening Sleep: Variable sleep pattern Performance Status: Patient's most difficult issue is getting from sitting to standing on the low toilet. She is to be receiving a commode. It does take her long extended period of time to bathe. She is mostly doing sponge baths. She does do her own meal prep, but this is still quite arduous. Remains quite resistant to any assistance. - Palliative Care Discussion: Patient was quite disappointed in her son's visit, and the fact he had called or followed up. Number Mk Dunn [phone] and left message to have a conversation. She was hoping he was going to help her come up with a plan, but he wanted to know what she had "figured out". She reports the ideal would be for her daughter to take her in, and she lives with her. This would not be realistic, and son confirm this. She is quite disappointed as she is taking care of her parents, that she is feeling quite alone in this process. She very much does not want to go for convalescent home, we discussed in the context that she may need to make some compromise. I did recommend we consider hospice for support, and when closer to end-of-life can transition to another setting and meet both goals of her safety as well as her being in her home as long as possible. Patient does not have a lot of resources, but she does feel like her son would help support her particularly around end-of-life. Her biggest fear is gasping at end-of-life, she does not want to have a difficult . We did discuss in the context of this that that is the role of hospice to help with symptom management. She would need though to be somewhere where we could administer the medications and have adequate care. She remains somewhat confused, she wants to go to the allergy doctor, we discussed that goals need to be consistent with comfort only, and there would be a hospice medical provider who could help oversee some of her symptom management. Impression and Recommendations - Palliative Care Impression: This is a 74-year-old woman who has advanced stage pulmonary fibrosis, who is homebound and continues to have high symptom burden and functional decline. She has recently had an acute injury with left lower extremity trauma, and home health is providing assistance for wound care. Patient remains at high risk for sequela related to her progressive disease, and isolated living situation. Palliative care to support for pain and symptom management, anticipatory guidance, and transition to hospice when aligns with patient's goals. Recommendations/Counseling Done: 1. Left lower extremity trauma wound. Patient is completed her Bactrim DS for 7 days, unfortunately did experience high INR. She does have some mild redness around the dressing, but no warmth, does appear to be improving. She is getting dressing changes twice a week from home health, they report wound is progressing, dressing was not removed. Will have home health RN show me pictures with next visit. 2. Depression/anxiety. Patient continues to be quite isolated, she does tend to get her days and nights mixed up, not from dementia but is staying up late playing games and on the computer. She does perceive herself is declining, feels her depression is currently controlled, but has been problematic in the past. Will need continued monitoring, may consider transitioning her referral to medical palliative care elementary school social worker. 3. Generalized weakness. Patient is showing functional decline, remains at high risk for recurrent falls. She has located a commode for over the toilet, at this point in time she is not interested in physical therapy. 4. Advanced pulmonary fibrosis. Patient does perceive her underlying illness is worsening. Continue to have conversations regarding transitioning to hospice, this remains still a difficult step for her. We will continue to sanjuanita lópez. Call out to her son regarding follow-up on their weekend and discussion. 5. Advanced care planning. Patient does have POLST in place with DNR/selective treatments. Reviewed yet again the hospice benefit, and both limitations and benefits may support patient. Discussed still needs caregiving at end-of-life, and may need to compromise as far as placement versus staying at home for at home. Patient does meet the criteria for hospice, this was reviewed with medical director community health nursing. Patient's goals so need to align for comfort focused care. Time Spent: 45 minutes with greater than 50% of this done in counseling regarding anticipatory guidance with pending decline, hospice benefit, and coordination of care with home health. [facility]
== END 2019-10-12 13:01 | disposition home or self-care (01) ==
LOC: PC 13:00
PROVIDERS: ATTEND Nurse Practitioner Adult Health
DX: Z51.5 Encounter for palliative care (principal); R63.4 Abnormal weight loss; R53.1 Weakness; J84.112 Idiopathic pulmonary fibrosis; S89.92XD Unspecified injury of left lower leg, subsequent encounter; F41.8 Other specified anxiety disorders; Z79.899 Other long term (current) drug therapy; Z79.52 Long term (current) use of systemic steroids; Z79.01 Long term (current) use of anticoagulants; Z86.711 Personal history of pulmonary embolism; Z60.2 Problems related to living alone; Z66 Do not resuscitate
CPT/HCPCS: 99349

== ENCOUNTER 2019-10-12 19:37 | Outpatient (CLI) | payer MEDICARE, OTHER | END 2019-10-12 19:38 | disposition EMS.NT | LOC: EMS 19:37 | PROVIDERS: ATTEND Surgery | DX: Z03.89 Encounter for observation for other suspected diseases and conditions ruled out (principal) ==

== ENCOUNTER 2019-10-19 08:15 | Outpatient (CLI) | payer MEDICARE, OTHER | END 2019-10-19 08:16 | disposition EMS.NT | LOC: EMS 08:15 | PROVIDERS: ATTEND Surgery | DX: R06.02 Shortness of breath (principal) ==

== ENCOUNTER 2019-10-19 12:57 | Inpatient (IN) | payer MEDICARE, OTHER ==
[2019-10-19] MEDS ORDERED: PROCHLORPERAZINE 25 MG SUPP PR PRN (13:25)
[2019-10-19] MEDS ORDERED: ACETAMINOPHEN 650 MG SUPP PR PRN (13:25)
[2019-10-19] MEDS ORDERED: CARBOXYMETHYLCELLULOSE OPHTH DROPS EACHEYE PRN (13:25)
[2019-10-19] MEDS ORDERED: ACETAMINOPHEN 325 MG TABLET PO PRN (13:25)
[2019-10-19] MEDS ORDERED: LORazepam 0.5 MG TABLET PO PRN (13:25)
--- NOTE | 2019-10-19 16:47 | PHARMACY PROGRESS NOTE ---
- Best Possible Medication History Admit Date and Time: 10/19/19 1524 Processed by: Pharmacy Medication History completed: Yes Secondary Source(s): Written medication list, Physician records Med list from [facility] Patient information sheet. As the person ultimately responsible for medication therapy, providers are able to order a medication from an existing home medication list in [facility] via the "Reconcile Routine" prior to Confirmation of that medication by operator command support systems. Such practice is discouraged except when the physician, in their clinical judgment, deems that a medical need exists for a medication without regard to previous use.
[2019-10-19] MEDS: MORPHINE SOL 10 MG/0.5 ML SYRINGE SL PRN (18:35)
[2019-10-20] MEDS: MORPHINE SOL 10 MG/0.5 ML SYRINGE SL PRN ×4 (02:19→20:51)
--- NOTE | 2019-10-20 11:09 | HISTORY & PHYSICAL EXAMINATION ---
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 pt is currently under the hospice care by Dr. Varela. pt report she can not breath at home specially at the morning. pt Refused to consider placement although palliative care encouraged such. pt Resisted idea of hired caregivers, does not have resources to hire but income too high for [facility]. With her chronic dyspnea/hypoxia secondary to advanced/severe idiopathic pulmonary fibrosisher and acute high anxiety exacerbating, her situation was not manageable at home, especially without any caregivers. Per hospice, there is no care facility other than hospital that can manage her current symptom burden, pt was admitted in hospital and was admitted for hospice GIP care. In the hospital, pt was required 40 liter/min O2 HHFNC to remain her 94-96% sats. Pt request to remain her code status DNR/DNI, comfortable measure and hospice care. History - Past Medical History Cardiovascular: reports: Hypertension, Pulmonary embolism Respiratory: reports: Shortness of breath, Other Neuro: reports: Migraines, Tremors Endocrine/Autoimmune: reports: None GI: reports: GERD : reports: Incontinence, Frequency HEENT: reports: Other Psych: reports: Depression, Anxiety Musculoskeletal: reports: Osteoarthritis, Chronic back pain Derm: reports: Other MRSA Hx?: No Other Past Medical History: pulmonary fibrosis - Past Surgical History General: reports: Cholecystectomy, Colonoscopy, EGD Ortho: reports: Knee replacement, Carpal Tunnel surgery, Spine surgery, Other /VORTEX OPERATOR: reports: 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 Cardiovascular: reports: Cardiac catheterization HEENT: reports: Tonsil/Adenoidectomy Derm: reports: Other - Family & Social History Family History: Mother: (father in 60's of [place]; mother in 60's of stomach cancer; brother of complications of agent orange), Cancer (thyroid cancer), Father: , [place], Sister: Alive and Well, Cancer, Brother: - Substance History Use: Uses substance without health or social issues: Alcohol (rarely;) - POLST Patient has POLST: Yes Meds/Allgy - Home Medications Home Medications: Ambulatory Orders Medication Instructions Recorded Confirmed Acetylcysteine 600 mg PO DAILY 11/08/13 10/19/19 [G-Jqwovl-r-Cysteine] azaTHIOprine [Azathioprine] 50 mg PO QDBREAKFAST 11/08/13 10/19/19 buPROPion [Wellbutrin Sr] 150 mg PO BID 07/06/16 10/19/19 Flaxseed Oil 1,000 mg PO DAILY 01/06/18 10/19/19 Amitriptyline HCl 20 mg PO QPM 10/19/19 10/19/19 Cholecalciferol (Vitamin D3) 5,000 unit PO DAILY 10/19/19 10/19/19 [Vitamin D3] Citalopram [CeleXA] 10 mg PO DAILY 10/19/19 10/19/19 Curcumin 220 mg PO DAILY 10/19/19 10/19/19 Docusate Sodium 100 - 200 mg PO DAILY PRN 10/19/19 10/19/19 LORazepam [Ativan] 0.5 mg PO Q6H PRN 10/19/19 10/19/19 Mv,Geremias,Iron,Mn/Folic Acid/Chol 1 each PO DAILY 10/19/19 10/19/19 [Hair, Skin and Nails Capsule] Warfarin [Coumadin] 7.5 mg PO SUTUTHSA 10/19/19 10/19/19 Warfarin [Coumadin] 10 mg PO MOWEFR 10/19/19 10/19/19 azaTHIOprine [Azathioprine] 100 mg PO QDDINNER 10/19/19 10/19/19 predniSONE [Prednisone] 10 mg PO DAILYWM 10/19/19 10/19/19 - Allergies Allergies/Adverse Reactions: Allergies Allergy/AdvReac Type Severity Reaction Status Date / Time amoxicillin Allergy Intermediate Rash Verified 10/01/19 17:29 clavulanic acid Allergy Unknown Verified 10/01/19 17:29 Penicillins Allergy Unknown Verified 10/01/19 17:29 Review of Systems - Constitutional Constitutional: denies: Fatigue, Fever, Chills, Weakness, Poor appetite, Diaphoresis - Eyes Eyes: denies: Pain, Blurred vision, Spots in vision, Field loss, Vision loss, Dipolpia - Ears, Nose & Throat Ears, Nose & Throat: denies: Ear pain, Hearing aids, Nasal pain, Nosebleeds, Nasal congestion, Bleeding gums - Cardiovascular Cariovascular: reports: Exertional dyspnea, Decr. exercise tolerance. denies: Irregular heart rate, Palpitations, Chest pain, Edema, Lightheadedness, Syncope - Respiratory Respiratory: reports: SOB at rest, SOB with exertion. denies: Cough, Sputum production, Wheezing, Snoring, Hemoptysis, Orthopnea - Gastrointestinal Gastrointestinal: denies: Abdominal pain, Abdominal distention, Constipation, Diarrhea, Change in bowel habits, Rectal bleeding, Black stools, Bloody stools, Nausea, Vomiting, Abraham blood emesis - Genitourinary Genitourinary: denies: Dysuria, Urgency, Hematuria - Musculoskeletal Musculoskeletal: denies: Muscle pain, Muscle aches, Stiffness, Limited range of motion, Muscle weakness, Gout - Integumentary Integumentary: denies: Rash, Lesions, Dryness, Lumps, Acne - Neurological Neurological: denies: General weakness, Focal weakness, Headache, Dizziness, Numbness, Memory problems, Pre-existing deficit, Abnormal gait, Seizures, Incoordination, Slurred speech - Psychiatric Psychiatric: denies: Depression, Anxiety, Suicidal, Delusions, Hallucinations, Homicidal - Endocrine Endocrine: denies: Polyuria, Polydypsia, Polyphagia - Hematologic/Lymphatic Hematologic/Lymphatic: denies: Bruising, Petechiae Exam - Vital Signs Vital Signs: Vital Signs x48h Pulse Resp BP Pulse Ox 10/20/19 08:00 91 24 138/73 H 96 - Physical Exam General Appearance: positive: Alert, Mild distress. negative: Lethargic Eyes Bilateral: positive: Normal inspection, PERRL, No lid inflammation ENT: positive: ENT inspection nml, No signs of dehydration. negative: Purulent nasal drainage Neck: positive: Nml inspection, Thyroid nml, Trachea midline. negative: Thyromegaly, Stiff neck, Tracheal deviation Respiratory: positive: Chest non-tender. negative: No respiratory distress, Breath sounds nml, Wheezes Cardiovascular: positive: No murmur, No gallop. negative: Extrasystoles, Tachycardia, Bradycardia, Systolic murmur, Diastolic murmur Peripheral Pulses: positive: 2+ Abdomen: positive: Non-tender, No organomegaly, Nml bowel sounds, No distention. negative: Tenderness, Guarding, Rebound Back: positive: Nml inspection. negative: CVA tenderness (R), CVA tenderness (L) Skin: positive: Color nml, No rash, Warm, Dry. negative: Cyanosis, Diaphoresis, Pallor Extremities: positive: Non-tender, Full ROM, Nml appearance. negative: Calf tenderness, Lisa's sign/cords Neurologic/Psychiatric: positive: Oriented x3, Motor nml, Sensation nml. negative: Weakness, Sensory loss, Facial droop, Slurred/abnml speech Sepsis Event Note (H) - Evaluation Current Stage of Sepsis: Ruled out Conclusion/Plan - Problem List (1) Admission for hospice care Conclusion/Plan: Patient is under care of hospice by Dr. Varela, will followup. scheduled and PRN of lorazepam and morphine to help deal with anxiety and dyspnea. Per hospice care, if pt is manage to survive this episode, then she will need placement in SNF or possibly inpatient hospice at [facility]. Consult with social media project manager. holding other meds by hospice care's recommendation. If pt is unable to take meds orally, then [place] catheter would be best option, as pt will be extremely difficult venous access, Then we will contact hospice office, call [phone] to reach coil connector repairer nurse. (2) Acute on chronic respiratory failure with hypoxia Conclusion/Plan: pt need 40 liter/min of HHFNC of O2 to remain her sats. continue comfortable measure. Followup hospice care plan. PO of Morphine PRN, continue supplement of O2, consult with RT. (3) Idiopathic pulmonary fibrosis Conclusion/Plan: Patient with history of severe/end stage of idiopathic pulmonary fibrosis, patient is under hospice care, will follow up hospice recommendation and hold her home meds. continue comfortable measure and supplement of HHFNC of O2, continue staff support. (4) Anxiety Conclusion/Plan: Patient present significant anxiety, patient frequently try to move out of the bed. These actions immediately drop her sats, make her more difficult to breath. Discussed with pt about the care plan, followup hospice care's recommendations, will add scheduled ativan plus PRN (5) Hx of pulmonary embolus Conclusion/Plan: Patient has history of pulmonary embolus, patient take the Coumadin in the home, now patient is on the hospice care and comfortable measure. Per hospice recommendation we will hold the medication now. Core Measures - Anticipated LOS I expect patient to be DC'd or transferred within 96 hours.: Yes - DVT/VTE - Prophylaxis VTE/DVT Device ordered at admit?: Yes VTE/DVT Prophylaxis med ordered at admit?: Yes
[2019-10-20] MEDS ORDERED: LORazepam 0.5 MG TABLET PO SCH (12:00)
[2019-10-21] MEDS: LORazepam 0.5 MG TABLET PO PRN ×2 (05:49→13:53)
--- NOTE | 2019-10-21 08:55 | PROVIDER PROGRESS NOTE ---
Assessment/Plan - Problem List (1) Admission for hospice care Assessment/Plan: 10/20 pt still need HHFNC at 45. pt sit up the chair to feed herself. it seems pt is comfortable. Continue follow hospice care, continue support. will discuss with hospice care for pt's d/c plan. Patient is under care of hospice by Dr. Varela, will followup. scheduled and PRN of lorazepam and morphine to help deal with anxiety and dyspnea. Per hospice care, if pt is manage to survive this episode, then she will need placement in SNF or possibly inpatient hospice at [facility]. Consult with social services coordinator. holding other meds by hospice care's recommendation. 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 (2) Acute on chronic respiratory failure with hypoxia Conclusion/Plan: 10/20 pt need 45 liter/min of HHFNC of O2 to remain her sats. continue comfortable measure. Followup hospice care plan pt need 40 liter/min of HHFNC of O2 to remain her sats. continue comfortable measure. Followup hospice care plan. PO of Morphine PRN, continue supplement of O2, consult with RT. (3) Idiopathic pulmonary fibrosis Conclusion/Plan: Patient with history of severe/end stage of idiopathic pulmonary fibrosis, patient is under hospice care, will follow up hospice recommendation and hold her home meds. continue comfortable measure and supplement of HHFNC of O2, continue staff support. (4) Anxiety Conclusion/Plan: 10/20 Yesterday patient had significant anxiety, patient had scheduled a one-time ativan, it seems controlled patient's anxiety then continue PRN Ativan Patient present significant anxiety, patient frequently try to move out of the bed. These actions immediately drop her sats, make her more difficult to breath. Discussed with pt about the care plan, followup hospice care's recommendations, will add scheduled ativan plus PRN (5) Hx of pulmonary embolus Conclusion/Plan: Patient has history of pulmonary embolus, patient take the Coumadin in the home, now patient is on the hospice care and comfortable measure. Per hospice recommendation we will hold the medication now. - Current Meds Current Meds: Current Medications Generic Name Dose Route Start Last Admin Trade Name Freq PRN Reason Stop Dose Admin Acetaminophen 650 mg 10/19/19 13:25 10/19/19 19:11 Tylenol PO 650 mg Q4HR PRN Administration Pain or Fever > 38C (100.4F) Lorazepam 0.5 mg 10/20/19 11:56 10/21/19 05:49 Ativan PO 0.5 mg Q6H PRN Administration See label comments Morphine Sulfate 10 mg 10/19/19 13:25 10/20/19 20:51 Roxanol SL 10 mg Q1H PRN Administration Pain or Dyspnea/SOA - Additional Planning My Orders: My Active Orders 10/20/19 11:56 LORazepam [Ativan] 0.5 mg PO Q6H PRN Subjective - Subjective Patient Reports: Feeling Better Objective Vital Signs: Vital Signs - 24 hr 10/21/19 08:00 O2 Saturation 97 Oxygen O2 Source [With Activity] Nasal cannula O2 Source [Without Activity] Nasal cannula O2 Source [facility] I&O (Last 24 Hrs): Intake and Output Totals x24h 10/19/19 10/20/19 10/21/19 23:59 23:59 23:59 Intake Total 794 1410 Balance 794 1410 General: Alert, Oriented x3, Mild distress HEENT: Atraumatic Neck: Supple Lymphatic: no adenopathy Neuro: Alert, Non Focal, Oriented Times 3 Cardiovascular: Regular rate, Normal S1, Normal S2 Respiratory: Chest non-tender Abdomen: Normal bowel sounds, Soft Extremities: Normal pulses - Results Results: Laboratory Results Coronavirus (PCR) NEGATIVE 10/19/19 19:15 - Procedures Procedures: Procedures CATARAC PHACOEMULS/ASPIR (06/15/14) EXCISION OF ESOPHAGOGASTRIC JUNCTION, ENDO, DIAGN (10/25/15) EXCISION OF LARGE INTESTINE, ENDO, DIAGN (10/25/15) INSERT LENS AT CATAR EXT (06/15/14) LOCAL EXCIS BREAST LES (11/09/13) REPLACEMENT OF LEFT LENS WITH SYNTH SUB, PERC APPROACH (01/10/16) Sepsis Event Note (H) - Evaluation Current Stage of Sepsis: Ruled out ABX Reporting Has patient been on IV antibiotics over the past 48 hours?: No Current Medications - Current Medications Current Medications: Active Medications Acetaminophen (Tylenol) 650 mg PO Q4HR PRN PRN Reason: Pain or Fever > 38C (100.4F) Last Admin: 10/19/19 19:11 Dose: 650 mg Acetaminophen (Tylenol) 650 mg MI Q4H PRN PRN Reason: Pain or Fever > 38C (100.4F) Carboxymethylcellulose (Refresh 1% Ophth Drops) 1 - 2 drops EACHEYE Q1H PRN PRN Reason: Dry Eye Lorazepam (Ativan) 0.5 mg PO Q6H PRN PRN Reason: See label comments Last Admin: 10/21/19 05:49 Dose: 0.5 mg Morphine Sulfate (Roxanol) 10 mg SL Q1H PRN PRN Reason: Pain or Dyspnea/SOA Last Admin: 10/20/19 20:51 Dose: 10 mg Polyethylene Glycol (Miralax) 17 gm PO DAILY PRN PRN Reason: Constipation Prochlorperazine Maleate (Compazine Supp) 25 mg MI Q6H PRN PRN Reason: Nausea / Vomiting Acetylcysteine [K-Cpohgs-p-Cysteine] 600 mg PO DAILY 11/08/13 azaTHIOprine [Azathioprine] 50 mg PO QDBREAKFAST 11/08/13 buPROPion [Wellbutrin Sr] 150 mg PO BID 07/06/16 Flaxseed Oil 1,000 mg PO DAILY 01/06/18 Amitriptyline HCl 20 mg PO QPM 10/19/19 Cholecalciferol (Vitamin D3) [Vitamin D3] 5,000 unit PO DAILY 10/19/19 Citalopram [CeleXA] 10 mg PO DAILY 10/19/19 Curcumin 220 mg PO DAILY 10/19/19 Docusate Sodium 100 - 200 mg PO DAILY PRN 10/19/19 LORazepam [Ativan] 0.5 mg PO Q6H PRN 10/19/19 Mv,Geremias,Iron,Mn/Folic Acid/Chol [Hair, Skin and Nails Capsule] 1 each PO DAILY 10/19/19 Warfarin [Coumadin] 7.5 mg PO SUTUTHSA 10/19/19 Warfarin [Coumadin] 10 mg PO MOWEFR 10/19/19 azaTHIOprine [Azathioprine] 100 mg PO QDDINNER 10/19/19 predniSONE [Prednisone] 10 mg PO DAILYWM 10/19/19
[2019-10-21] MEDS ORDERED: polyethylene glycoL 3350 17 GM PACKET PO PRN (09:00)
[2019-10-21] MEDS: MORPHINE SOL 10 MG/0.5 ML SYRINGE SL PRN ×6 (09:50→22:30)
[2019-10-21] MEDS: NYSTATIN POWDER 15 GM TOP SCH ×2 (11:28→20:21)
[2019-10-21] MEDS ORDERED: LORazepam 0.5 MG TABLET PO SCH (18:00)
[2019-10-21] MEDS ORDERED: MORPHINE SOL 10 MG/0.5 ML SYRINGE PO SCH (18:00)
[2019-10-21 22:33] VITALS: BP 127/65
--- NOTE | 2019-10-21 23:46 | Discharge Plan ---
Discharge Plan Problem Reviewed?: Yes Disposition: 20 No Smoking: If you smoke, Please STOP! Call for help.
--- NOTE | 2019-10-21 23:48 | DISCHARGE SUMMARY ---
"Discharge Summary Admit Date: 10/19/19 Discharge Date: 10/21/19 Discharging Provider: August Rdz Primary Care Provider: Je Varela Code Status: Do Not Attempt Resuscitation Discharge Disposition: 20 - DIAGNOSES Admission Diagnoses: Admission for hospice care Acute on chronic respiratory failure with hypoxia Idiopathic pulmonary fibrosis Anxiety History of pulmonary embolism Discharge Diagnoses with Status of Each Condition: Admission for hospice care Acute on chronic respiratory failure with hypoxia Idiopathic pulmonary fibrosis Anxiety History of pulmonary embolism - HPI History of Present Illness: H&P per GILBERT Chi: This is a 74-yrs old female with a PMH significant of idiopathic pulmonary fibrosis with biopsy proven since 2001, 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 pt is currently under the hospice care by Dr. Varela. pt report she can not breath at home specially at the morning. pt Refused to consider placement although palliative care encouraged such. pt Resisted idea of hired caregivers, does not have resources to hire but income too high for [employer]. With her chronic dyspnea/hypoxia secondary to advanced/severe idiopathic pulmonary fibrosisher and acute high anxiety exacerbating, her situation was not manageable at home, especially without any caregivers. Per hospice, there is no care facility other than hospital that can manage her current symptom burden, pt was admitted in hospital and was admitted for hospice GIP care. In the hospital, pt was required 40 liter/min O2 HHFNC to remain her 94-96% sats. Pt request to remain her code status DNR/DNI, comfortable measure and hospice care. - CONSULTS | PROCEDURES Consultations: Hospice Care - HOSPITAL COURSE Hospital Course: The patient was admitted for hospice GIP care due to significant dyspnea and hypoxia related to her end-stage lung disease due to pulmonary fibrosis. While she was hospitalized, she was treated with high flow nasal cannula and Oxymizer. She required 45 L of oxygen at 80% FiO2. Saturations maintained in the 90s. She was treated with morphine and Ativan as needed for her dyspnea. The patient initially declined both morphine and Ativan despite her being significantly tachypneic with respiratory rates in the low 30s and she is speaking in very short sentences. With minimal exertion, she would desaturate. She was finally agreeable to receiving morphine and Ativan and shows she was placed on 5 mg of morphine every 6 hours and 0.5 mg of lorazepam every 6 hours with another 5 mg of morphine as needed every hour for dyspnea. On the evening of the , despite remaining on high flow nasal cannula of 45 L a minute with an FiO2 of 90%, she desaturated into the 60s. She was given morphine and Ativan as she was quite tachypneic with a respiratory rate of 32. The patient on October 20 at 23:30. Hospice was contacted and they will be communicating with the family. - ALLERGIES Allergies/Adverse Reactions: Allergies Allergy/AdvReac Type Severity Reaction Status Date / Time amoxicillin Allergy Intermediate Rash Verified 10/01/19 17:29 clavulanic acid Allergy Unknown Verified 10/01/19 17: Penicillins Allergy Unknown Verified 10/01/19 17:29 - MEDICATIONS Home Medications: Ambulatory Orders Medication Instructions Recorded Confirmed Acetylcysteine 600 mg PO DAILY 11/08/13 10/19/19 [B-Iiuyxu-d-Cysteine] azaTHIOprine [Azathioprine] 50 mg PO QDBREAKFAST 11/08/13 10/19/19 buPROPion [Wellbutrin Sr] 150 mg PO BID 07/06/16 10/19/19 Flaxseed Oil 1,000 mg PO DAILY 01/06/18 10/19/19 Amitriptyline HCl 20 mg PO QPM 10/19/19 10/19/19 Cholecalciferol (Vitamin D3) 5,000 unit PO DAILY 10/19/19 10/19/19 [Vitamin D3] Citalopram [CeleXA] 10 mg PO DAILY 10/19/19 10/19/19 Curcumin 220 mg PO DAILY 10/19/19 10/19/19 Docusate Sodium 100 - 200 mg PO DAILY PRN 10/19/19 10/19/19 LORazepam [Ativan] 0.5 mg PO Q6H PRN 10/19/19 10/19/19 Mv,Geremias,Iron,Mn/Folic Acid/Chol 1 each PO DAILY 10/19/19 10/19/19 [Hair, Skin and Nails Capsule] Warfarin [Coumadin] 7.5 mg PO SUTUTHSA 10/19/19 10/19/19 Warfarin [Coumadin] 10 mg PO MOWEFR 10/19/19 10/19/19 azaTHIOprine [Azathioprine] 100 mg PO QDDINNER 10/19/19 10/19/19 predniSONE [Prednisone] 10 mg PO DAILYWM 10/19/19 10/19/19 - PHYSICAL EXAM AT DISCHARGE Eyes Bilateral: positive: Other (Pupils dilated and fixed.) Respiratory: positive: Other (No breath sounds present.) Cardiovascular: positive: Other (No heart sounds present.) Peripheral Pulses: positive: 0 Skin: positive: Pallor - SEPSIS Current Stage of Sepsis: Ruled out"
== END 2019-10-21 23:30 | disposition expired | DRG 951 ==
LOC: MS3 15:24 → MS2 10-20 19:53
PROVIDERS: ADMIT Specialist; ATTEND Internal Medicine
DX: Z51.5 Encounter for palliative care (principal); J96.21 Acute and chronic respiratory failure with hypoxia; J84.112 Idiopathic pulmonary fibrosis; F41.9 Anxiety disorder, unspecified; F32.9 Major depressive disorder, single episode, unspecified; G62.9 Polyneuropathy, unspecified; Z66 Do not resuscitate; Z03.818 Encounter for observation for suspected exposure to other biological agents ruled out; Z86.718 Personal history of other venous thrombosis and embolism; Z79.01 Long term (current) use of anticoagulants
CPT/HCPCS: 87635; A9270; 81599

== ENCOUNTER 2019-10-19 15:01 | Outpatient (CLI) | payer MEDICARE, OTHER | END 2019-10-19 15:02 | disposition critical access hospital (66) | LOC: EMS 15:01 | PROVIDERS: ATTEND Surgery | DX: R06.89 Other abnormalities of breathing (principal); Z99.81 Dependence on supplemental oxygen; R06.02 Shortness of breath | CPT/HCPCS: A0425; A0429 ==